=== PATIENT | male | born 1950 | race African-American/Black ===

== ENCOUNTER 2018-01-03 10:54 | Inpatient (IN) | payer OTHER ==
--- NOTE | 2018-01-03 10:57 | PDOC ---
History of Present Illness - General Chief Complaint: Redness To Affected Area Stated Complaint: LEFT SHOULDER REDNESS Time Seen by Provider: 01/03/18 10:56 - History of Present Illness Initial Comments: 01/03/18 11:07 PMHx: denies PSHx: R eye cataract sx Allergies: Denies Meds: keflex SocHx: no etoh, no tobacco, no drugs PMD: Dr. Peralta Ortho: Dr. Drummond 01/03/18 11:08 67yo male presents to the ED with Dr. Drummond for eval of L shoulder pain. Pt states the pain has been present x 1 week. 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 Pt with pain with ROM of the joint. Seen by Dr. Drummond on wednesday - dx with cellulitis of the L shoulder and started on keflex. Pt states he has been taking the keflex. Denies fevers. States the pain and the redness has not improved since starting the antibiotics. Pt denies radiation of the pain. No paresthesias. No chills. States he has been taking the abx as prescribed. Had labs on wednesday that showed an elevated wbc of 15. Pt had a repeat visit with Dr. Drummond today who noticed there was not improvement of the cellulitis and brought the patient to the ED for further eval. Dr. Drummond did an ultrasound in the office earlier today that does not show a septic joint. Concern for cellulitis that has failed outpt abx. Past History - Past Medical History Allergies/Adverse Reactions: Allergies Allergy/AdvReac Type Severity Reaction Status Date / Time No Known Allergies Allergy Verified 01/03/18 10:55 Home Medications: Ambulatory Orders Cephalexin [Keflex] 500 mg PO BID 01/03/18 COPD: No - Suicide/Smoking/Psychosocial Hx Smoking History: Never smoked Hx Alcohol Use: No Drug/Substance Use Hx: No Substance Use Type: None Review of Systems - Review of Systems Able to Perform ROS?: Yes Is the patient limited Azeri proficient: No Constitutional: No: Chills, Fever, Night Sweats HEENTM: No: Nose Congestion, Throat Pain Respiratory: No: Cough, Shortness of Breath Cardiac (ROS): No: Chest Pain, Palpitations ABD/GI: No: Diarrhea, Nausea, Vomiting, Abdominal cramping : No: Burning, Dysuria Musculoskeletal: Yes: Joint Pain, Joint Swelling, Joint Stiffness, Other (L shoulder pain, L shoulder redness, warmth) Integumentary: Yes: Erythema Neurological: No: Headache, Numbness, Paresthesia, Weakness All Other Systems: Reviewed and Negative *Physical Exam - Vital Signs 01/03/18 11:12 Selected Entries 01/03/18 10:55 Temperature 98.7 F Pulse Rate 111 H Respiratory 20 Rate Blood Pressure 158/97 Blood Pressure 117 Mean O2 Sat by Pulse 97 Oximetry (%) Weight 532.971 kg - Physical Exam General Appearance: Yes: Nourished, Appropriately Dressed. No: Apparent Distress HEENT: positive: EOMI, Normal Voice, Pharynx Normal Neck: positive: Supple. negative: Rigid Respiratory/Chest: positive: Lungs Clear, Normal Breath Sounds. negative: Chest Tender, Respiratory Distress Cardiovascular: positive: Regular Rhythm, S1, S2, Tachycardia Musculoskeletal: positive: Normal Inspection, Decreased Range of Motion, Other ( no back ttp) Extremity: positive: Normal Capillary Refill, Erythema (L shoulder erythema, warthm, ttp over anterior shoulder and along bicep tendon insertion, limited ROM secondary to pain), Inflammation, Other (radial pulses intact, sensation intact distal, brisk cap refill). negative: Calf Tenderness Integumentary: positive: Dry, Erythema (L anterior shoulder) Neurologic: positive: debt collector II-XII NML intact, Fully Oriented, Alert, Motor Strength 5/5. negative: Sensory Deficit Heart Score/ECG Review - ECG Intrepretation Comment:: 01/03/18 12:35 sinus at 89, nl axis, lvh, nl interval, no acute st/t wave findings ED Treatment Course - LABORATORY CBC & Chemistry Diagram: 01/03/18 11:24 01/03/18 11:24 Medical Decision Making - Critical Care Time Total Critical Care Time (minutes): 30 Critical Care Statement: The care of this patient involved high complexity decision making to prevent further life threatening deterioration of the patient 's condition and/or to evaluate & treat vital organ system(s) failure or risk of failure. - Medical Decision Making 01/03/18 11:15 a/p: 67yo male with no pmhx with L shoulder cellulitis -has been on abx x 3 days without improvement -had an elevated wbc on wednesday -will repeat labs, cultures, esr, crp -will most likely need admission for iv abx -had an ultrasound with Dr. Drummond without signs of septic joint -will monitor and reassess -ivf hdyration for elevated heart rate -lactate and cultures -pain control 01/03/18 11:58 increasing WBC will start iv abx microblog sent to [facility] for admissin cultures sent 01/03/18 12:15 glucose >800 new onset DM with L shoulder cellulitis will need inpt admission will continue with IVF hydration iv abx running case discussed with Sandra who accepts pt to service 01/03/18 12:35 pt now states he used to take metformin - has not taken the metformin in a long time states urinary freq, no dysuria will send vbg, a1c, acetone, repeat chem, will give ivf hdyration, insulin, will need admission *DC/Admit/Observation/Transfer Diagnosis at time of Disposition: Cellulitis of shoulder, New onset type 2 diabetes mellitus, KATARZYNA (acute kidney injury) - Discharge Dispostion Condition at time of disposition: Guarded Decision to Admit order: Yes - Referrals - Patient Instructions - Post Discharge Activity - Attestations Physician Attestion: 01/03/18 12:22 I, Dr. Sugey Bonilla, DO, attest that this document has been prepared under my direction and personally reviewed by me in its entirety. I further attest, that it accurately reflects all work, treatment, procedures and medical decision -making performed by me.
[2018-01-03] MEDS ORDERED: KETOROLAC TROMETHAMINE 30 MG/1 ML VIAL IVPUSH ONE (11:06)
[2018-01-03] MEDS ORDERED: ACETAMINOPHEN 1000 MG/100 ML VIAL (NON FORMULARY) IVPB ONE (11:06)
[2018-01-03] MEDS ORDERED: SODIUM CHLORIDE 0.9% 1000 ML INFUS.BAG IV ONE ×3 (11:06→12:23)
[2018-01-03] MEDS ORDERED: ACETAMINOPHEN INJECTION 100 ML IVPB ONE (11:38)
[2018-01-03] MEDS ORDERED: KETOROLAC TROMETHAMINE 30 MG/1 ML VIAL ONE (11:38)
[2018-01-03 11:39] LABS: HEMATOCRIT 40.7 % (35.4-49); HEMOGLOBIN 13.3 GM/dl (11.7-16.9); MCH 27.5 pg (25.7-33.7); MCHC 32.7 g/dl (32.0-35.9); MEAN CELL VOLUME 84.2 fl (80-96); MEAN PLT VOLUME 9.2 fl (7.5-11.1); PLATELET COUNT 371 K/MM3 (134-434); RBC 4.83 M/mm3 (4.00-5.60); RDW 13.7 % (11.9-15.9); WHITE BLOOD COUNT 16.6 K/mm3 (4.0-10.8)
[2018-01-03] MEDS ORDERED: VANCOMYCIN 1 GRAM (PRE-DOCKED) 1,000 MG/250 ML BAG IVPB ONE (11:55)
[2018-01-03 11:59] LABS: ALBUMIN 2.6 g/dl (3.5-5.0); ALK PHOS 99 U/L (32-92); ANION GAP 17 (8-16); BILIRUBIN,TOTAL 0.5 mg/dl (0.2-1.0); BLOOD UREA NITROGEN 32 mg/dl (7-18); CALCIUM 8.7 mg/dl (8.4-10.2); CHLORIDE 88 mmol/L (98-107); CO2 20 mmol/L (22-28); CREATININE 1.8 mg/dl (0.6-1.3); POTASSIUM 5.1 mmol/L (3.5-5.1); SGOT/AST 16 U/L (10-42); SGPT/ALT 22 U/L (10-40); SODIUM 125 mmol/L (136-145); TOT PROT 6.8 g/dl (6.4-8.3)
[2018-01-03 12:05] LABS: PLATELET ESTIMATE ADEQUATE
--- NOTE | 2018-01-03 12:10 | HP ---
CHIEF COMPLAINT: right shoulder pain PCP: Dr Krueger HISTORY OF PRESENT ILLNESS:patient is a 67-year-old male with a past medical history of diabetes. She reports with ongoing left shoulder pain that worsens upon movement for the past 4 weeks. He reports that he was prescribed metformin for his diabetes "several years ago" and self discontinued the medcation because he diabetes resolved as per patient. He was initially evaluated in the emergency department ([facility]) and diagnosed with possible impingement syndrome of the left shoulder and discharged. He reports following up with the orthopedist Dr. Drummond on 12/31/2017 prescribed Keflex ultrasound was completed as per patient which was negative for septic joint and started on Keflex. patient reports taking Keflex as prescribed however the pain worsened to the left shoulder and redness continued to the extremity. 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 with his Smoking: none Alcohol:none Drugs: none Family History: mother and father , patient reports his parents of old age and they didn't have any co-morbidities Allergies No Known Allergies Allergy (Verified 01/03/18 10:55) HOME MEDICATIONS: Home Medications Medication Instructions Recorded Cephalexin [Keflex] 500 mg PO BID 01/03/18 REVIEW OF SYSTEMS CONSTITUTIONAL: Absent: fever, chills, diaphoresis, generalized weakness, malaise, loss of appetite, weight change HEENT: Absent: rhinorrhea, nasal congestion, throat pain, throat swelling, difficulty swallowing, mouth swelling, ear pain, eye pain, visual changes CARDIOVASCULAR: Absent: chest pain, syncope, palpitations, irregular heart rate, lightheadedness , peripheral edema RESPIRATORY: Absent: cough, shortness of breath, dyspnea with exertion, orthopnea, wheezing, stridor, hemoptysis GASTROINTESTINAL: Absent: abdominal pain, abdominal distension, nausea, vomiting, diarrhea, constipation, melena, hematochezia GENITOURINARY: Absent: dysuria, frequency, urgency, hesitancy, hematuria, flank pain, genital pain MUSCULOSKELETAL: present: left shoulder pain Absent: myalgia, arthralgia, joint swelling, back pain, neck pain SKIN: Absent: rash, itching, pallor HEMATOLOGIC/IMMUNOLOGIC: Absent: easy bleeding, easy bruising, lymphadenopathy, frequent infections ENDOCRINE: present: increased thirst Absent: unexplained weight gain, unexplained weight loss, heat intolerance, cold intolerance NEUROLOGIC: Absent: headache, focal weakness or paresthesias, dizziness, unsteady gait, seizure, mental status changes, bladder or bowel incontinence PSYCHIATRIC: Absent: anxiety, depression, suicidal or homicidal ideation, hallucinations. PHYSICAL EXAMINATION Vital Signs - 24 hr 01/03/18 10:55 Temperature 98.7 F Pulse Rate 111 H Respiratory 20 Rate Blood Pressure 158/97 O2 Sat by Pulse 97 Oximetry (%) GENERAL: Awake, alert, and fully oriented, in no acute distress. HEAD: Normal with no signs of trauma. EYES: Pupils equal, round and reactive to light, extraocular movements intact, sclera anicteric, conjunctiva clear. No lid lag. EARS, NOSE, THROAT: Ears normal, nares patent, oropharynx clear without exudates . dry mucous membranes. NECK: Normal range of motion, supple without lymphadenopathy, JVD, or masses. LUNGS: Breath sounds equal, clear to auscultation bilaterally. No wheezes, and no crackles. No accessory muscle use. HEART: Regular rate and rhythm, normal S1 and S2 without murmur, rub or gallop. ABDOMEN: Soft, nontender, not distended, normoactive bowel sounds, no guarding, no rebound, no masses. No hepatomegaly or splenomegaly. MUSCULOSKELETAL: Normal range of motion at all joints. No bony deformities or tenderness. No CVA tenderness. UPPER EXTREMITIES: 2+ pulses, warm, well-perfused. No cyanosis. No clubbing. No peripheral edema. RIGHT UPPER EXTREMITY: erythema noted to anterior shoulder, pain upon ROM, less 3 second capillary refill +3 radial pulse LOWER EXTREMITIES: 2+ pulses, warm, well-perfused. No calf tenderness. No peripheral edema. NEUROLOGICAL: Cranial nerves II-XII intact. Normal speech. Normal gait. PSYCHIATRIC: Cooperative. Good eye contact. Appropriate mood and affect. SKIN: Warm, dry decreased turgor, no rashes or lesions noted, normal capillary refill. Laboratory Results - last 24 hr 01/03/18 01/03/18 11:24 11:24 WBC 16.6 H RBC 4.83 Hgb 13.3 Hct 40.7 MCV 84.2 MCH 27.5 MCHC 32.7 RDW 13.7 Plt Count 371 D MPV 9.2 Absolute Neuts (auto) 14.7 Neutrophils % Gas Line Installer Neutrophils % (Manual) 89.0 H Band Neutrophils % 2.0 Lymphocytes % Gas Line Installer Lymphocytes % (Manual) 7.0 L Monocytes % Gas Line Installer Monocytes % (Manual) 2 L Eosinophils % Gas Line Installer Basophils % Gas Line Installer Platelet Estimate Adequate Sodium 125 L Potassium 5.1 Chloride 88 L Carbon Dioxide 20 L Anion Gap 17 H BUN 32 H Creatinine 1.8 H Creat Clearance w eGFR 37.71 Calcium 8.7 Total Bilirubin 0.5 AST 16 ALT 22 Alkaline Phosphatase 99 H Total Protein 6.8 Albumin 2.6 L Laboratory Tests 01/03/18 01/03/18 11:24 11:24 ESR 105 H Random Glucose 812 H* C-Reactive Protein 33.7 H ASSESSMENT/PLAN: 1) Endo diabetes with hyperglycemia - serum glucose noted, slight anion gap patient appears severely dehydrated on exam 3 L of normal saline ordered, 10 units of subcutaneous insulin given in the emergency department, repeat fingerstick at 2 PM with insulin sliding scale , pending repeat BMP at 2 PM, pending hemoglobin a1c - appreciate endocrine input - dietary evaluation 2) ID left shoulder cellulitis - continue vancomycin renal dose, pending urine and blood cultures. - Appreciate ID input 3) nephrology KATARZYNA - creatine 1.8 unknown baseline repeat BMP at 2 PM, KATARZYNA likely secondary to hypovolemia close following F/E/N - diabetic diet - replete electrolytes prn -ns @150ml/hr ppx - scd/david - pepcid dispo: pt requires inpatient admission Problem List - Problem (1) Diabetes mellitus with hyperglycemia Code(s): E11.65 - TYPE 2 DIABETES MELLITUS WITH HYPERGLYCEMIA Visit type - Emergency Visit Emergency Visit: Yes ED Registration Date: 01/03/18 Care time: The patient presented to the Emergency Department on the above date and was hospitalized for further evaluation of their emergent condition. - New Patient This patient is new to me today: Yes Date on this admission: 01/03/18 - Critical Care Critical Care patient: No Hospitalist Screening - Colonoscopy Questionnaire Colonoscopy Questionnaire: Colonoscopy Questionnaire - Patient: 50 - 75 years old and never had a screening colonoscopy: Yes History of colon or rectal polyps, or CA: No History of IBD, Crohn's disease or UC: No History of abdominal radiation therapy as a child: No - Relative: 1 with colon or rectal CA, or polyps at age 60 or younger: No Colon or rectal CA diagnosed at age 45 or younger: No Multiple relatives with colon or rectal CA: No - Outcome: Screening Result: Positive Screen
[2018-01-03 12:13] LABS: GLUCOSE,RANDOM 812 mg/dl (74-106)
[2018-01-03] MEDS ORDERED: INSULIN REGULAR HUMAN 100 UNITS/ML *VIAL SQ ONE (12:19)
[2018-01-03] MEDS ORDERED: VANCOMYCIN 1,000 MG VIAL (RESTRICTED TO ID ONLY) ONE (12:21)
[2018-01-03] MEDS ORDERED: INSULIN REGULAR HUMAN 100 UNITS/ML *VIAL ONE (12:21)
[2018-01-03 14:15] LABS: VENOUS PH 7.37 (7.32-7.42)
[2018-01-03] MEDS ORDERED: SODIUM CHLORIDE 1,000 ML IV SCH (14:15)
[2018-01-03 15:59] LABS: ALBUMIN 2.1 g/dl (3.5-5.0); ALK PHOS 82 U/L (32-92); ANION GAP 9 (8-16); BILIRUBIN,TOTAL 0.5 mg/dl (0.2-1.0); BLOOD UREA NITROGEN 29 mg/dl (7-18); CALCIUM 7.8 mg/dl (8.4-10.2); CHLORIDE 100 mmol/L (98-107); CO2 22 mmol/L (22-28); CREATININE 1.4 mg/dl (0.6-1.3); POTASSIUM 4.7 mmol/L (3.5-5.1); SGOT/AST 17 U/L (10-42); SGPT/ALT 18 U/L (10-40); SODIUM 131 mmol/L (136-145); TOT PROT 5.6 g/dl (6.4-8.3)
[2018-01-03] MEDS: INSULIN SLIDING SCALE (NOVOLOG) 1 VIAL SQ SCH ×4 (16:01→22:59)
[2018-01-03 16:03] LABS: GLUCOSE,RANDOM 554 mg/dl (74-106)
[2018-01-03 16:10] LABS: URINE APPEARANCE Clear; URINE BILIRUBIN Negative (NEGATIVE); URINE GLUCOSE (UA) 2+ (NEGATIVE); URINE KETONE Trace (NEGATIVE); URINE LEUK ESTERASE Negative (NEGATIVE); URINE NITRITE Negative (NEGATIVE); URINE PROTEIN Negative (NEGATIVE); URINE UROBILINOGEN 0.2 (0.2-1.0)
[2018-01-03 16:11] LABS: URINE COLOR YELLOW
[2018-01-03 17:30] VITALS: BMI 27.4
[2018-01-03 18:18] LABS: URINE WBC 0-2 (0-2)
[2018-01-03] MEDS ORDERED: INSULIN (NOVOLOG) ASPART 100 UNITS/ML 10ML VIAL ONE (18:48)
--- NOTE | 2018-01-03 19:37 | PN ---
Progress Note (short form) - Note Progress Note: This gentleman is a 67-year-old male who initially presented to my office 3 days ago for evaluation of shoulder pain. There is no particular triggering incident. His exam at the time showed erythema and warmth over the anterior aspect of the shoulder. Laboratory studies into the time demonstrated ESR of 80 and white count of 15. The presumptive diagnosis was cellulitis and the patient was treated with by mouth Keflex over the weekend. He was brought in for follow-up today and upon presentation demonstrated no clinical improvement. In office ultrasound was performed prior to admission over the acromioclavicular joint demonstrating no effusion and therefore suggesting this was superficial and not involving a septic joint. He was brought to the ER given his failure to respond to by mouth and was found to have further elevated white count, acute and severe hyperglycemia, dehydration and renal failure. We will continue to follow the patient. If he is not clinically improving on IV antibiotics and with treatment of his other medical ailments, we can consider aspiration of the acromioclavicular joint.This gentleman is a 67-year-old male who initially presented to my office 3 days ago for evaluation of shoulder pain. There is no particular triggering incident. His exam at the time showed erythema and warmth over the anterior aspect of the shoulder. Laboratory studies into the time demonstrated ESR of 80 and white count of 15. The presumptive diagnosis was cellulitis and the patient was treated with by mouth Keflex over the weekend. He was brought in for follow-up today and upon presentation demonstrated no clinical improvement. In office ultrasound was performed prior to admission over the acromioclavicular joint demonstrating no effusion and therefore suggesting this was superficial and not involving a septic joint. He was brought to the ER given his failure to respond to by mouth and was found to have further elevated white count, acute and severe hyperglycemia, dehydration and renal failure. We will continue to follow the patient. If he is not clinically improving on IV antibiotics and with treatment of his other medical ailments, we can consider MRI or aspiration of the acromioclavicular joint.
[2018-01-03] MEDS ORDERED: SODIUM CHLORIDE 0.45% 1,000 ML IV SCH (21:15)
[2018-01-03] MEDS: ACETAMINOPHEN 325 MG TABLET (FP) PO PRN (22:40)
[2018-01-03] MEDS: INSULIN (LEVEMIR) 100 UNITS/ML UNITS SQ SCH (22:45)
[2018-01-03] MEDS ORDERED: INSULIN (NOVOLOG) ASPART 100 UNITS/ML 10ML VIAL SQ ONE (23:00)
[2018-01-04] MEDS ORDERED: INSULIN (NOVOLOG) ASPART 100 UNITS/ML 10ML VIAL SQ ONE (00:43)
[2018-01-04] MEDS: INSULIN SLIDING SCALE (NOVOLOG) 1 VIAL SQ SCH ×3 (06:38→17:11)
[2018-01-04] MEDS ORDERED: INSULIN SLIDING SCALE (NOVOLOG) 1 VIAL SQ SCH (07:00)
--- NOTE | 2018-01-04 07:40 | PN ---
Physical Exam: SUBJECTIVE: Patient seen and examined, reports ongoing left shoulder pain denies any tactile fever. OBJECTIVE:She is a 59-year-old male, with a past medical history of diabetes patient was admitted from the emergency department for cellulitis failed outpatient therapy and hyperglycemia Vital Signs Period Temp Pulse Resp BP Sys/Green Pulse Ox Last 24 Hr 98.5 F-99.0 F 71-111 16-20 132-158/61-97 97-100 GENERAL: The patient is awake, alert, and fully oriented, in no acute distress. HEAD: Normal with no signs of trauma. EYES: PERRL, extraocular movements intact, sclera anicteric, conjunctiva clear. No ptosis. ENT: Ears normal, nares patent, oropharynx clear without exudates, moist mucous membranes. NECK: Trachea midline, full range of motion, supple. LUNGS: Breath sounds equal, clear to auscultation bilaterally, no wheezes, no crackles, no accessory muscle use. HEART: Regular rate and rhythm, S1, S2 without murmur, rub or gallop. ABDOMEN: Soft, nontender, nondistended, normoactive bowel sounds, no guarding, no rebound, no hepatosplenomegaly, no masses. EXTREMITIES: 2+ pulses, warm, well-perfused, no edema. lEFT UPPER EXTREMITY: 5 CM OF ERYTHEMA NOTED TO THE LEFT ANTERIOR SHOULDER WITH POINT TENDERNESS NO FLUCTUANCE NOTED. uPON ROM NEUROLOGICAL: Cranial nerves II through XII grossly intact. Normal speech, gait not observed. PSYCH: Normal mood, normal affect. SKIN: Warm, dry, normal turgor, no rashes or lesions noted Laboratory Results - last 24 hr CBC WBC 14.9 K/mm3 (4.0-10.8) H 01/04/18 07:25 RBC 4.26 M/mm3 (4.00-5.60) 01/04/18 07:25 Hgb 11.6 GM/dl (11.7-16.9) L D 01/04/18 07:25 Hct 34.6 % (35.4-49) L 01/04/18 07:25 MCV 81.3 fl (80-96) 01/04/18 07:25 MCH 27.4 pg (25.7-33.7) 01/04/18 07:25 MCHC 33.7 g/dl (32.0-35.9) 01/04/18 07:25 RDW 13.4 % (11.9-15.9) 01/04/18 07:25 Plt Count 353 K/MM3 (134-434) 01/04/18 07:25 MPV 8.8 fl (7.5-11.1) 01/04/18 07:25 Absolute Neuts (auto) 12.6 # 01/04/18 07:25 Neutrophils % 84.7 % (42.8-82.8) H 01/04/18 07:25 Neutrophils % (Manual) 89.0 % (42.8-82.8) H 01/03/18 11:24 Band Neutrophils % 2.0 % (0-10) 01/03/18 11:24 Lymphocytes % 9.1 % (8-40) 01/04/18 07:25 Lymphocytes % (Manual) 7.0 % (8-40) L 01/03/18 11:24 Monocytes % 5.1 % (3.8-10.2) 01/04/18 07:25 Monocytes % (Manual) 2 % (3.8-10.2) L 01/03/18 11:24 Eosinophils % 0.9 % (0-4.5) 01/04/18 07:25 Basophils % 0.2 % (0-2.0) 01/04/18 07:25 Platelet Estimate Adequate 01/03/18 11:24 ESR 105 mm/hr (0-20) H 01/03/18 11:24 CMP Sodium 135 mmol/L (136-145) L 01/04/18 07:25 Potassium 3.8 mmol/L (3.5-5.1) 01/04/18 07:25 Chloride 107 mmol/L (98-107) 01/04/18 07:25 Carbon Dioxide 23 mmol/L (22-28) 01/04/18 07:25 Anion Gap 5 (8-16) L 01/04/18 07:25 BUN 20 mg/dl (7-18) H D 01/04/18 07:25 Creatinine 1.0 mg/dl (0.6-1.3) D 01/04/18 07:25 Creat Clearance w eGFR > 60 (>60) 01/04/18 07:25 POC Glucometer 327 UNITS (80-120) 01/04/18 11:54 Random Glucose 145 mg/dl (74-106) H D 01/04/18 07:25 Hemoglobin A1c % 13.5 % (4.8-6.0) H 01/03/18 12:45 Lactic Acid 1.5 mmol/L (0.0-2.0) 01/03/18 11:24 Calcium 7.7 mg/dl (8.4-10.2) L 01/04/18 07:25 Phosphorus 3.2 mg/dl (2.5-4.6) 01/04/18 07:25 Magnesium 1.9 mg/dL (1.8-2.4) 01/04/18 07:25 Total Bilirubin 0.5 mg/dl (0.2-1.0) 01/04/18 07:25 AST 19 U/L (10-42) 01/04/18 07:25 ALT 16 U/L (10-40) 01/04/18 07:25 Alkaline Phosphatase 76 U/L (32-92) 01/04/18 07:25 C-Reactive Protein 33.7 MG/DL (0.00-0.3) H 01/03/18 11:24 Total Protein 5.5 g/dl (6.4-8.3) L 01/04/18 07:25 Albumin 2.0 g/dl (3.5-5.0) L 01/04/18 07:25 TSH 1.36 uIU/ml (0.358-3.74) 01/03/18 12:40 Free T4 0.96 ng/dl (0.76-1.16) 01/03/18 12:40 Free T3 3.0 pg/ml (2.0-4.4) 01/03/18 12:40 Active Medications Generic Name Dose Route Start Last Admin Trade Name Freq PRN Reason Stop Dose Admin Acetaminophen 650 mg 01/03/18 14:09 01/03/18 22:40 Tylenol - PO 650 mg Q4H PRN Administration FEVER Famotidine 20 mg 01/04/18 10:00 Pepcid - PO DAILY JATINDER Sodium Chloride 1,000 mls @ 83 mls/hr 01/03/18 21:15 01/03/18 22:59 1/2 Normal Saline IV 83 mls/hr ASDIR JATINDER Administration Insulin Aspart 1 vial 01/03/18 22:00 01/04/18 06:38 Novolog Vial Sliding Scale - SQ Not Given ACHS [facility] Protocol Insulin Detemir 15 units 01/03/18 22:00 01/03/18 22:45 Levemir Vial SQ 15 units HS JATINDER Administration Microbiology 01/03/18 11:35 Blood - Peripheral Venous Blood Culture - Preliminary NO GROWTH OBTAINED AFTER 24 HOURS, INCUBATION TO CONTINUE FOR 4 DAYS. 01/03/18 11:24 Blood - Peripheral Venous Blood Culture - Preliminary NO GROWTH OBTAINED AFTER 24 HOURS, INCUBATION TO CONTINUE FOR 4 DAYS. ASSESSMENT/PLAN: 1) Endo diabetes with hyperglycemia - Hemoglobin A1c noted to be 13, continue fingersticks before meals and at bedtime with regular insulin coverage and Levemir 15 units subcutaneous daily at bedtime - No anion gap is noted will decrease IV fluids 83 mL an hour, strict monitoring - Hand Decorator consulted and following - Appreciate dietary evaluation 2) ID left shoulder cellulitis - continue vancomycin And Zosyn pending urine and blood cultures - Leukocytosis trending downward patient is afebrile infectious disease physician consulted and following. 3) nephrology KATARZYNA - Creatinine 1.0. resolved with IV fluids KATARZYNA secondary to hypovolemia F/E/N - diabetic diet - replete electrolytes prn -ns @ 83ml/hr ppx - scd/david - pepcid dispo: pt requires inpatient admission Problem List - Problems (1) Diabetes mellitus with hyperglycemia Code(s): E11.65 - TYPE 2 DIABETES MELLITUS WITH HYPERGLYCEMIA Visit type - Emergency Visit Emergency Visit: Yes ED Registration Date: 01/03/18 Care time: The patient presented to the Emergency Department on the above date and was hospitalized for further evaluation of their emergent condition. - New Patient This patient is new to me today: No - Critical Care Critical Care patient: No - Discharge Referral Referred to [facility] No
--- NOTE | 2018-01-04 09:04 | CONSULT ---
Consult Consult Specialty:: Endocrinology Referred by:: Sandra Barr Reason for Consultation:: Hyperglycemia - History of Present Illness Chief Complaint: left shoulder pain History of Present Illness: This is a 67yo male wihg h/o of DM for ?10years, on Metformin for about a month only after diagnosis presented to the ED for evaluation of L shoulder pain. Pt states the pain has been present for about 1 week. 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 Pt with pain with ROM of the joint. Seen by Dr. Drummond on wednesday - dx with cellulitis of the L shoulder and started on keflex. In the ED pt was found to be hyperglycemic with blood sugar of 812, CO2 20, AGap 17, Cr 1.8 and Acetone small +. Pt was treated with Insulin and IV hydration with improvement in hyperglycemia and renal function. On further questioning pt gives h/o polyuria, polydipsia for about 2 weeks which has now resolved. Has also lost around 10 lbs recently. Also has blurred vision and numbness of left foor for about 2 weeks. Doesn't know if anyone in the family is diabetic. - History Source History Provided By: Patient, Medical Record - Past Medical History Endocrine: Yes: Diabetes Mellitus - Alcohol/Substance Use Hx Alcohol Use: No - Smoking History Smoking history: Never smoked Have you smoked in the past 12 months: No Home Medications - Allergies Allergies/Adverse Reactions: Allergies Allergy/AdvReac Type Severity Reaction Status Date / Time No Known Allergies Allergy Verified 01/03/18 10:55 - Home Medications Home Medications: Ambulatory Orders Cephalexin [Keflex] 500 mg PO BID 01/03/18 Family Disease History - Family Disease History Other Family History: Doesn't know if anyone in family is diabetic Review of Systems - Review of Systems Constitutional: reports: No Symptoms Eyes: reports: No Symptoms HENT: reports: No Symptoms Neck: reports: No Symptoms Cardiovascular: reports: No Symptoms Respiratory: reports: No Symptoms Gastrointestinal: reports: No Symptoms Genitourinary: reports: No Symptoms Breasts: reports: No Symptoms Reported Musculoskeletal: reports: Joint Pain (left shoulder), Other (left leg numbnes) Integumentary: reports: No Symptoms Neurological: reports: No Symptoms Endocrine: reports: No Symptoms Hematology/Lymphatic: reports: No Symptoms Psychiatric: reports: No Symptoms Physical Exam Vital Signs: Vital Signs Temperature 98.5 F 01/04/18 06:00 Pulse Rate 71 01/04/18 06:00 Respiratory Rate 18 01/04/18 06:00 Blood Pressure 132/61 01/04/18 06:00 O2 Sat by Pulse Oximetry (%) 97 01/04/18 08:02 Constitutional: Yes: No Distress, Calm Eyes: Yes: Conjunctiva Clear, EOM Intact HENT: Yes: Atraumatic, Normocephalic Neck: Yes: Supple, Trachea Midline Cardiovascular: Yes: Regular Rate and Rhythm Respiratory: Yes: Regular, CTA Bilaterally Gastrointestinal: Yes: Normal Bowel Sounds, Soft Breast(s): Yes: WNL Musculoskeletal: Yes: Joint Swelling (left shoulder) Extremities: Yes: WNL Edema: No Neurological: Yes: Alert, Oriented Imaging - Results Chest X-ray: Report Reviewed Assessment/Plan AP: Left shoulder pain/swelling: ?Septic arthritis IV abx Further management as per ID, Ortho T2DM: ?new onset. Continue with Levemir 15 units at Novolog SS coverage Will adjust Insulin dose tomorrow depending upon how pt responds. nutrition consult Will f/u
[2018-01-04 09:06] LABS: BASO % 0.2 % (0-2.0); EOS % 0.9 % (0-4.5); HEMATOCRIT 34.6 % (35.4-49); HEMOGLOBIN 11.6 GM/dl (11.7-16.9); LYMPH % 9.1 % (8-40); MCH 27.4 pg (25.7-33.7); MCHC 33.7 g/dl (32.0-35.9); MEAN CELL VOLUME 81.3 fl (80-96); MEAN PLT VOLUME 8.8 fl (7.5-11.1); MONO % 5.1 % (3.8-10.2); NEUT % 84.7 % (42.8-82.8); PLATELET COUNT 353 K/MM3 (134-434); RBC 4.26 M/mm3 (4.00-5.60); RDW 13.4 % (11.9-15.9); WHITE BLOOD COUNT 14.9 K/mm3 (4.0-10.8)
[2018-01-04] MEDS: FAMOTIDINE 20 MG TABLET PO SCH (09:33)
[2018-01-04 09:40] LABS: ALK PHOS 76 U/L (32-92); ANION GAP 5 (8-16); BILIRUBIN,TOTAL 0.5 mg/dl (0.2-1.0); BLOOD UREA NITROGEN 20 mg/dl (7-18); CALCIUM 7.7 mg/dl (8.4-10.2); CHLORIDE 107 mmol/L (98-107); CO2 23 mmol/L (22-28); GLUCOSE,RANDOM 145 mg/dl (74-106); MAGNESIUM 1.9 mg/dL (1.8-2.4); PHOSPHOROUS 3.2 mg/dl (2.5-4.6); POTASSIUM 3.8 mmol/L (3.5-5.1); SGOT/AST 19 U/L (10-42); SGPT/ALT 16 U/L (10-40); SODIUM 135 mmol/L (136-145); TOT PROT 5.5 g/dl (6.4-8.3)
--- NOTE | 2018-01-04 10:11 | PN ---
Progress Note (short form) - Note Progress Note: ID Consult dictated L shoulder cellulitis ? septic arthritis Uncontrolled diabetes mellitus Azotemia- improved Await c/s Ortho follow up Consider MRI L shoulder Empiric vancomycin / zosyn
[2018-01-04] MEDS: VANCOMYCIN 1 GRAM (PRE-DOCKED) 1,000 MG/250 ML BAG IVPB SCH ×2 (11:02→21:52)
[2018-01-04] MEDS: PIPERACILLIN/TAZOB 3.375 GM 3.375 GM/50 ML BAG IVPB SCH ×2 (11:02→18:25)
--- NOTE | 2018-01-04 11:19 | CONS ---
INFECTIOUS DISEASE CONSULTATION DATE OF CONSULTATION: DATE OF DICTATION: 01/04/2018 The patient is a 67-year-old, diabetic male who is evaluated for cellulitis of the left shoulder. He reports he was well until approximately 1 week ago. He began to develop pain, swelling, and erythema of the left shoulder. He denies any traumatic injury. No insect or animal bites or scratches. He presented to an orthopedist on December 31, 2017. He was diagnosed with cellulitis. On evaluation, he was felt not to have septic arthritis of the left shoulder. His clinical course is complicated by uncontrolled diabetes mellitus and azotemia. As noted, he denies any traumatic injury or strain to his left shoulder. No associated fever or chills. He denies prior history of joint infection. No other joint involvement reported. PAST MEDICAL HISTORY: Positive for diabetes mellitus. PAST SURGICAL HISTORY: Status post cataract surgery. ALLERGIES: No known allergies. SOCIAL HISTORY: Negative for tobacco or alcohol use. LABORATORY DATA: White count on admission 16,000, presently 14.9; hematocrit 34.6; platelet count 353. BUN 20, creatinine 1.0. Blood cultures are pending. Urinalysis negative leukocyte esterase. PHYSICAL EXAMINATION: General: He is awake and alert. He is not acutely toxic appearing. Vital Signs: Temperature 98.7; blood pressure 132/61; pulse 71, regular; respirations 18 per minute. HEENT: Sclerae are anicteric. Heart: Sounds S1, S2. Lungs: Clear. Left Shoulder: There is swelling of the left shoulder with decreased range of motion. There is an ill-defined area of erythema present on the anterior aspect of the left shoulder, warm to touch. No crepitus or fluctuance. Abdomen: Soft and nontender. Extremities: Negative for edema. IMPRESSION: 1. Left shoulder cellulitis. 2. Possible left shoulder septic arthritis. 3. Uncontrolled diabetes mellitus. 4. Azotemia, resolved. Await culture results. Orthopedic evaluation. Would consider additional imaging of the left shoulder, specifically an MRI. Empiric antibiotic coverage pending cultures with vancomycin and Zosyn. Analgesics. Will follow. Thank you for the kind referral. CORNELL GARCIA M.D. ROMARIO/[id number]
--- NOTE | 2018-01-04 14:47 | EKG ---
Test Reason : Blood Pressure : / mmHG Vent. Rate : 089 BPM Atrial Rate : 089 BPM P-R Int : 148 ms QRS Dur : 100 ms QT Int : 370 ms P-R-T Axes : 064 022 070 degrees QTc Int : 450 ms NORMAL SINUS RHYTHM BIATRIAL ENLARGEMENT LEFT VENTRICULAR HYPERTROPHY ABNORMAL ECG NO PREVIOUS ECGS AVAILABLE Confirmed by MD Eusebia, David ([id number]) on 01/04/2018 2:47:03 PM Referred By: REBEKA Confirmed By:David Laws MD
[2018-01-04] MEDS ORDERED: SODIUM CHLORIDE 0.45%/POT 20 MEQ/1,000 ML INFUS.BAG IV SCH (15:15)
[2018-01-04] MEDS: INSULIN (LEVEMIR) 100 UNITS/ML UNITS SQ SCH (21:20)
[2018-01-04] MEDS ORDERED: INSULIN (NOVOLOG) ASPART 100 UNITS/ML 10ML VIAL ONE (21:20)
[2018-01-04] MEDS: ACETAMINOPHEN 325 MG TABLET (FP) PO PRN (21:27)
[2018-01-04] MEDS ORDERED: ZOLPIDEM TARTRATE 5 MG TABLET PO PRN (22:00)
[2018-01-04] MEDS ORDERED: Insulin (LOG) Aspart 100 UNITS/ML VIAL SQ SCH (22:00)
[2018-01-05] MEDS: PIPERACILLIN/TAZOB 3.375 GM 3.375 GM/50 ML BAG IVPB SCH ×3 (01:30→18:15)
[2018-01-05] MEDS: INSULIN SLIDING SCALE (NOVOLOG) 1 VIAL SQ SCH ×4 (06:37→21:40)
--- NOTE | 2018-01-05 07:44 | PN ---
Physical Exam: SUBJECTIVE: Patient seen and examined, patient reports pain to the left extremity has worsened within the past 24 hours, patient denies any chest pain OBJECTIVE: Patient is a 59-year-old male, with a past medical history of diabetes patient was admitted from the emergency department for cellulitis failed outpatient therapy and hyperglycemia Vital Signs Period Temp Pulse Resp BP Sys/Green Pulse Ox Last 24 Hr 98.5 F-99.7 F 72-84 18-18 171-175/72-88 97-99 GENERAL: The patient is awake, alert, and fully oriented, in no acute distress. HEAD: Normal with no signs of trauma. EYES: PERRL, extraocular movements intact, sclera anicteric, conjunctiva clear. No ptosis. ENT: Ears normal, nares patent, oropharynx clear without exudates, moist mucous membranes. NECK: Trachea midline, full range of motion, supple. LUNGS: Breath sounds equal, clear to auscultation bilaterally, no wheezes, no crackles, no accessory muscle use. HEART: Regular rate and rhythm, S1, S2 without murmur, rub or gallop. ABDOMEN: Soft, nontender, nondistended, normoactive bowel sounds, no guarding, no rebound, no hepatosplenomegaly, no masses. EXTREMITIES: 2+ pulses, warm, well-perfused, no edema. LEFT UPPER EXTREMITY: 4 CM OF ERYTHEMA NOTED TO THE LEFT ANTERIOR SHOULDER WITH POINT TENDERNESS NO FLUCTUANCE NOTED. PAIN UPON ROM NEUROLOGICAL: Cranial nerves II through XII grossly intact. Normal speech, gait not observed. PSYCH: Normal mood, normal affect. SKIN: Warm, dry, normal turgor, no rashes or lesions noted Laboratory Results - last 24 hr 01/03/18 01/03/18 01/03/18 12:40 18:33 22:20 WBC RBC Hgb Hct MCV MCH MCHC RDW Plt Count MPV Absolute Neuts (auto) Neutrophils % Lymphocytes % Monocytes % Eosinophils % Basophils % Sodium Potassium Chloride Carbon Dioxide Anion Gap BUN Creatinine Creat Clearance w eGFR POC Glucometer 430 420 Random Glucose Calcium Phosphorus Magnesium Total Bilirubin AST ALT Alkaline Phosphatase Total Protein Albumin Free T3 3.0 01/04/18 01/04/18 01/04/18 07:25 07:25 11:54 WBC 14.9 H RBC 4.26 Hgb 11.6 L D Hct 34.6 L MCV 81.3 MCH 27.4 MCHC 33.7 RDW 13.4 Plt Count 353 MPV 8.8 Absolute Neuts (auto) 12.6 Neutrophils % 84.7 H Lymphocytes % 9.1 Monocytes % 5.1 Eosinophils % 0.9 Basophils % 0.2 Sodium 135 L Potassium 3.8 Chloride 107 Carbon Dioxide 23 Anion Gap 5 L BUN 20 H D Creatinine 1.0 D Creat Clearance w eGFR > 60 POC Glucometer 327 Random Glucose 145 H D Calcium 7.7 L Phosphorus 3.2 Magnesium 1.9 Total Bilirubin 0.5 AST 19 ALT 16 Alkaline Phosphatase 76 Total Protein 5.5 L Albumin 2.0 L Free T3 01/04/18 01/04/18 01/05/18 16:18 21:11 06:09 WBC RBC Hgb Hct MCV MCH MCHC RDW Plt Count MPV Absolute Neuts (auto) Neutrophils % Lymphocytes % Monocytes % Eosinophils % Basophils % Sodium Potassium Chloride Carbon Dioxide Anion Gap BUN Creatinine Creat Clearance w eGFR POC Glucometer 305 390 246 Random Glucose Calcium Phosphorus Magnesium Total Bilirubin AST ALT Alkaline Phosphatase Total Protein Albumin Free T3 Active Medications Generic Name Dose Route Start Last Admin Trade Name Freq PRN Reason Stop Dose Admin Acetaminophen 650 mg 01/03/18 14:09 01/04/18 21:27 Tylenol - PO 650 mg Q4H PRN Administration FEVER Famotidine 20 mg 01/04/18 10:00 01/04/18 09:33 Pepcid - PO 20 mg DAILY JATINDER Administration Vancomycin HCl 1,000 mg in 250 mls @ 166.667 mls/hr 01/04/18 10:30 01/04/18 21:52 Vancomycin (Pre-Docked) IVPB 166.667 mls/hr BID@1030,2230 JATINDER Administration Protocol Piperacillin Sod/Tazobactam Sod 3.375 gm in 50 mls @ 100 mls/hr 01/04/18 10: 30 01/05/18 01:30 Zosyn 3.375gm Ivpb (Pre-Docked) IVPB 100 mls/hr Q8H-IV JATINDER Administration Protocol Potassium Chloride/Sodium Chloride 20 meq in 1,000 mls @ 75 mls/hr 01/04/18 15 :15 01/04/18 17:11 1/2ns+20meq Kcl IV 75 mls/hr ASDIR JATINDER Administration Insulin Aspart 1 vial 01/04/18 11:00 01/05/18 06:37 Novolog Vial Sliding Scale - SQ 4 units TIDAC JATINDER Administration Protocol Insulin Aspart 0 units 01/04/18 22:00 01/04/18 21:16 Novolog SQ 8 units HS [facility] Administration Protocol Insulin Detemir 15 units 01/03/18 22:00 01/04/18 21:20 Levemir Vial SQ 15 units HS JATINDER Administration Lisinopril 5 mg 01/05/18 10:00 Prinivil PO DAILY JATINDER Zolpidem Tartrate 5 mg 01/04/18 22:00 Ambien - PO HS PRN INSOMNIA Microbiology 01/03/18 15:59 Urine - Urine Clean Catch Urine Culture - Final NO GROWTH OBTAINED 01/03/18 11:35 Blood - Peripheral Venous Blood Culture - Preliminary NO GROWTH OBTAINED AFTER 48 HOURS, INCUBATION TO CONTINUE FOR 3 DAYS. 01/03/18 11:24 Blood - Peripheral Venous Blood Culture - Preliminary NO GROWTH OBTAINED AFTER 48 HOURS, INCUBATION TO CONTINUE FOR [address] of upper extremity: Abscess cannot be excluded possible mild erosion of the cortex of the undersurface of the acrominion, distal clavicle multiple air bubbles were obvious cortical disruption questionable osteomyelitis ASSESSMENT/PLAN: 1) Endo diabetes with hyperglycemia - Continue fingersticks before meals and at bedtime with regular insulin coverage and fingersticks elevated levermir 20 units QHS. - End Matcher consulted and following - Appreciate dietary evaluation 2) ID left shoulder cellulitis - continue vancomycin And Zosyn, blood cultures negative to date - MRI of left shoulder ordered questionable cellulitis on CT scan - Leukocytosis trending downward patient is afebrile infectious disease physician consulted and following. 3) nephrology KATARZYNA - Creatinine 1.0. resolved with IV fluids KATARZYNA secondary to hypovolemia F/E/N - diabetic diet - replete electrolytes prn ppx - scd/david - pepcid dispo: pt requires inpatient admission Problem List - Problems (1) Diabetes mellitus with hyperglycemia Code(s): E11.65 - TYPE 2 DIABETES MELLITUS WITH HYPERGLYCEMIA Visit type - Emergency Visit Emergency Visit: Yes ED Registration Date: 01/03/18 Care time: The patient presented to the Emergency Department on the above date and was hospitalized for further evaluation of their emergent condition. - New Patient This patient is new to me today: No - Critical Care Critical Care patient: No - Discharge Referral Referred to [facility] Med P.C.: No
--- NOTE | 2018-01-05 08:57 | PN ---
Progress Note (short form) - Note Progress Note: Left shoulder pain Pain left foot improved Vital Signs Period Temp Pulse Resp BP Sys/Green Pulse Ox Last 24 Hr 98.5 F-99.7 F 72-84 18-18 171-175/72-88 97-99 PE: AOx3 Neck: Supple, No JVD HEENT: EOMI Lungs: CTA CVS: S1S2 Abd: Bening EXt: No edema. +Swelling Left shoulder Neuro: No focal deficit CMP Sodium 135 mmol/L (136-145) L 01/04/18 07:25 Potassium 3.8 mmol/L (3.5-5.1) 01/04/18 07:25 Chloride 107 mmol/L (98-107) 01/04/18 07:25 Carbon Dioxide 23 mmol/L (22-28) 01/04/18 07:25 Anion Gap 5 (8-16) L 01/04/18 07:25 BUN 20 mg/dl (7-18) H D 01/04/18 07:25 Creatinine 1.0 mg/dl (0.6-1.3) D 01/04/18 07:25 Creat Clearance w eGFR > 60 (>60) 01/04/18 07:25 POC Glucometer 246 UNITS (80-120) 01/05/18 06:09 Random Glucose 145 mg/dl (74-106) H D 01/04/18 07:25 Hemoglobin A1c % 13.5 % (4.8-6.0) H 01/03/18 12:45 Lactic Acid 1.5 mmol/L (0.0-2.0) 01/03/18 11:24 Calcium 7.7 mg/dl (8.4-10.2) L 01/04/18 07:25 Phosphorus 3.2 mg/dl (2.5-4.6) 01/04/18 07:25 Magnesium 1.9 mg/dL (1.8-2.4) 01/04/18 07:25 Total Bilirubin 0.5 mg/dl (0.2-1.0) 01/04/18 07:25 AST 19 U/L (10-42) 01/04/18 07:25 ALT 16 U/L (10-40) 01/04/18 07:25 Alkaline Phosphatase 76 U/L (32-92) 01/04/18 07:25 C-Reactive Protein 33.7 MG/DL (0.00-0.3) H 01/03/18 11:24 Total Protein 5.5 g/dl (6.4-8.3) L 01/04/18 07:25 Albumin 2.0 g/dl (3.5-5.0) L 01/04/18 07:25 TSH 1.36 uIU/ml (0.358-3.74) 01/03/18 12:40 Free T4 0.96 ng/dl (0.76-1.16) 01/03/18 12:40 Free T3 3.0 pg/ml (2.0-4.4) 01/03/18 12:40 Current Medications Generic Name Dose Route Start Last Admin Trade Name Freq PRN Reason Stop Dose Admin Acetaminophen 650 mg 01/03/18 14:09 01/04/18 21:27 Tylenol - PO 650 mg Q4H PRN Administration FEVER Famotidine 20 mg 01/04/18 10:00 01/04/18 09:33 Pepcid - PO 20 mg DAILY JATINDER Administration Vancomycin HCl 1,000 mg in 250 mls @ 166.667 mls/hr 01/04/18 10:30 01/04/18 21:52 Vancomycin (Pre-Docked) IVPB 166.667 mls/hr BID@1030,2230 JATINDER Administration Protocol Piperacillin Sod/Tazobactam Sod 3.375 gm in 50 mls @ 100 mls/hr 01/04/18 10: 30 01/05/18 01:30 Zosyn 3.375gm Ivpb (Pre-Docked) IVPB 100 mls/hr Q8H-IV JATINDER Administration Protocol Potassium Chloride/Sodium Chloride 20 meq in 1,000 mls @ 75 mls/hr 01/04/18 15 :15 01/04/18 17:11 1/2ns+20meq Kcl IV 75 mls/hr ASDIR JATINDER Administration Insulin Aspart 1 vial 01/04/18 11:00 01/05/18 06:37 Novolog Vial Sliding Scale - SQ 4 units TIDAC JATINDER Administration Protocol Insulin Aspart 1 vial 01/05/18 08:11 Novolog Vial Sliding Scale - SQ HS JATINDER Protocol Insulin Detemir 15 units 01/03/18 22:00 06/19/18 21:20 Levemir Vial SQ 15 units HS JATINDER Administration Lisinopril 5 mg 01/05/18 10:00 Prinivil PO DAILY JATINDER Zolpidem Tartrate 5 mg 01/04/18 22:00 Ambien - PO HS PRN INSOMNIA AP: Left shoulder pain/swelling: ?Septic arthritis IV abx Further management as per ID, Ortho T2DM: ?new onset. INcrease Levemir 20 units at HS Increase Novolog SS coverage Will adjust Insulin dose tomorrow depending upon how pt responds. nutrition consult Teach pt to self monitor blood sugar and self inject Insulin Will f/u
[2018-01-05 09:00] LABS: BASO % 0.8 % (0-2.0); EOS % 1.3 % (0-4.5); HEMATOCRIT 34.3 % (35.4-49); HEMOGLOBIN 11.7 GM/dl (11.7-16.9); LYMPH % 11.7 % (8-40); MCH 27.6 pg (25.7-33.7); MCHC 34.2 g/dl (32.0-35.9); MEAN CELL VOLUME 80.9 fl (80-96); MEAN PLT VOLUME 8.7 fl (7.5-11.1); MONO % 5.5 % (3.8-10.2); NEUT % 80.7 % (42.8-82.8); PLATELET COUNT 378 K/MM3 (134-434); RBC 4.24 M/mm3 (4.00-5.60); RDW 13.3 % (11.9-15.9)
[2018-01-05 09:16] LABS: ALBUMIN 1.9 g/dl (3.5-5.0); ALK PHOS 79 U/L (32-92); ANION GAP 7 (8-16); BILIRUBIN,TOTAL 0.3 mg/dl (0.2-1.0); BLOOD UREA NITROGEN 13 mg/dl (7-18); CALCIUM 7.7 mg/dl (8.4-10.2); CHLORIDE 103 mmol/L (98-107); CO2 21 mmol/L (22-28); CREATININE 0.9 mg/dl (0.6-1.3); GLUCOSE,RANDOM 270 mg/dl (74-106); MAGNESIUM 1.8 mg/dL (1.8-2.4); PHOSPHOROUS 3.3 mg/dl (2.5-4.6); POTASSIUM 4.1 mmol/L (3.5-5.1); SGOT/AST 23 U/L (10-42); SGPT/ALT 21 U/L (10-40); SODIUM 131 mmol/L (136-145); TOT PROT 5.6 g/dl (6.4-8.3)
--- NOTE | 2018-01-05 10:00 | PN ---
Progress Note, Physician History of Present Illness: Awake, alert Reports less shoulder pain, increased ROM Low grade temp noted WBC improved BC no growth - Current Medication List Current Medications: Active Medications Acetaminophen (Tylenol -) 650 mg PO Q4H PRN PRN Reason: FEVER Last Admin: 01/04/18 21:27 Dose: 650 mg Famotidine (Pepcid -) 20 mg PO DAILY JATINDER Last Admin: 01/04/18 09:33 Dose: 20 mg Vancomycin HCl (Vancomycin (Pre-Docked)) 1,000 mg in 250 mls @ 166.667 mls/hr IVPB BID@1030,2230 JATINDER; Protocol Last Admin: 01/04/18 21:52 Dose: 166.667 mls/hr Piperacillin Sod/Tazobactam Sod (Zosyn 3.375gm Ivpb (Pre-Docked)) 3.375 gm in 50 mls @ 100 mls/hr IVPB Q8H-IV JATINDER; Protocol Last Admin: 01/05/18 01:30 Dose: 100 mls/hr Potassium Chloride/Sodium Chloride (1/2ns+20meq Kcl) 20 meq in 1,000 mls @ 75 mls/hr IV ASDIR [facility] Last Admin: 01/04/18 17:11 Dose: 75 mls/hr Insulin Aspart (Novolog Vial Sliding Scale -) 1 vial SQ HS [facility]; Protocol Insulin Aspart (Novolog Vial Sliding Scale -) 1 vial SQ TIDAC [facility]; Protocol Insulin Detemir (Levemir Vial) 20 units SQ HS [facility] Lisinopril (Prinivil) 5 mg PO DAILY [facility] Zolpidem Tartrate (Ambien -) 5 mg PO HS PRN PRN Reason: INSOMNIA - Objective Vital Signs: Vital Signs Temperature 98.5 F 01/05/18 06:00 Pulse Rate 72 01/05/18 06:00 Respiratory Rate 18 01/05/18 06:00 Blood Pressure 175/76 01/05/18 06:00 O2 Sat by Pulse Oximetry (%) 97 01/05/18 08:31 Constitutional: Yes: No Distress Eyes: Yes: Conjunctiva Clear Cardiovascular: Yes: Regular Rate and Rhythm, S1, S2 Respiratory: Yes: CTA Bilaterally Gastrointestinal: Yes: Normal Bowel Sounds. No: Tenderness Extremities: Yes: Other (L shoulder decreased swelling. + erythema/warmth anteriorly.) Labs: CBC, BMP 01/05/18 07:15 01/05/18 07:15 Assessment/Plan Cellulitis L shoulder ? septic arthritis Uncontrolled diabetes mellitus Azotemia Await c/s Will ask micro lab to hold BC for P. acnes Continue empiric vancomycin/ zosyn Ortho follow up
[2018-01-05] MEDS: LISINOPRIL 5 MG TABLET (FP) PO SCH (10:37)
[2018-01-05] MEDS: FAMOTIDINE 20 MG TABLET PO SCH (10:37)
[2018-01-05] MEDS: VANCOMYCIN 1 GRAM (PRE-DOCKED) 1,000 MG/250 ML BAG IVPB SCH ×2 (10:39→22:00)
--- NOTE | 2018-01-05 11:18 | PN ---
Progress Note, Physician History of Present Illness: Feeling better. Had CT yesterday. More motion with shoulder today. Pain well controlled - Current Medication List Current Medications: Active Medications Acetaminophen (Tylenol -) 650 mg PO Q4H PRN PRN Reason: FEVER Last Admin: 01/04/18 21:27 Dose: 650 mg Famotidine (Pepcid -) 20 mg PO DAILY [facility] Last Admin: 01/05/18 10:37 Dose: 20 mg Vancomycin HCl (Vancomycin (Pre-Docked)) 1,000 mg in 250 mls @ 166.667 mls/hr IVPB BID@1030,2230 [facility]; Protocol Last Admin: 01/05/18 10:39 Dose: 166.667 mls/hr Piperacillin Sod/Tazobactam Sod (Zosyn 3.375gm Ivpb (Pre-Docked)) 3.375 gm in 50 mls @ 100 mls/hr IVPB Q8H-IV JATINDER; Protocol Last Admin: 01/05/18 10:39 Dose: 100 mls/hr Potassium Chloride/Sodium Chloride (1/2ns+20meq Kcl) 20 meq in 1,000 mls @ 75 mls/hr IV ASDIR [facility] Last Admin: 01/04/18 17:11 Dose: 75 mls/hr Insulin Aspart (Novolog Vial Sliding Scale -) 1 vial SQ HS [facility]; Protocol Insulin Aspart (Novolog Vial Sliding Scale -) 1 vial SQ TIDAC [facility]; Protocol Insulin Detemir (Levemir Vial) 20 units SQ HS [facility] Lisinopril (Prinivil) 5 mg PO DAILY [facility] Last Admin: 01/05/18 10:37 Dose: 5 mg Zolpidem Tartrate (Ambien -) 5 mg PO HS PRN PRN Reason: INSOMNIA - Objective Vital Signs: Vital Signs Temperature 98.6 F 01/05/18 10:00 Pulse Rate 74 01/05/18 10:00 Respiratory Rate 18 01/05/18 10:00 Blood Pressure 167/76 01/05/18 10:00 O2 Sat by Pulse Oximetry (%) 97 01/05/18 08:31 Constitutional: Yes: Well Nourished, No Distress, Calm Musculoskeletal: Yes: Other (Left shoulder: approx 5x5cm area of erythema along the superior anterior aspect of the shoulder. Mild diffuse tenderness along this area. No other areas of tenderness. Smooth ROM of shoulder. Good strenght with empty can test. NVID.) Labs: CBC, BMP 01/05/18 07:15 01/05/18 07:15 Assessment/Plan #1 Left shoulder cellulitis -No surgical intervention at this time -Continue ABX
[2018-01-05] MEDS ORDERED: INSULIN (NOVOLOG) ASPART 100 UNITS/ML 10ML VIAL ONE (11:56)
[2018-01-05] MEDS ORDERED: MAGNESIUM 1GM/D5W 100ML - 100 ML IVPB IVPB ONE (14:10)
[2018-01-05] MEDS: DOCUSATE SODIUM 100 MG CAPSULE (FP) PO SCH ×2 (15:24→21:35)
[2018-01-05] MEDS: oxyCODONE HCL 5 MG TABLET PO PRN ×2 (15:27→21:35)
[2018-01-05] MEDS: INSULIN (LEVEMIR) 100 UNITS/ML UNITS SQ SCH (21:45)
[2018-01-06] MEDS: PIPERACILLIN/TAZOB 3.375 GM 3.375 GM/50 ML BAG IVPB SCH ×3 (01:58→17:14)
[2018-01-06] MEDS: INSULIN SLIDING SCALE (NOVOLOG) 1 VIAL SQ SCH ×4 (06:30→22:47)
[2018-01-06] MEDS: DOCUSATE SODIUM 100 MG CAPSULE (FP) PO SCH ×3 (06:30→22:05)
[2018-01-06] MEDS ORDERED: INSULIN (NOVOLOG) ASPART 100 UNITS/ML 10ML VIAL ONE ×4 (06:37→21:44)
[2018-01-06 08:55] LABS: BASO % 0.4 % (0-2.0); EOS % 1.6 % (0-4.5); HEMATOCRIT 34.7 % (35.4-49); HEMOGLOBIN 11.8 GM/dl (11.7-16.9); LYMPH % 13.7 % (8-40); MCH 27.3 pg (25.7-33.7); MCHC 34.1 g/dl (32.0-35.9); MEAN CELL VOLUME 80.1 fl (80-96); MEAN PLT VOLUME 8.1 fl (7.5-11.1); MONO % 6.7 % (3.8-10.2); NEUT % 77.6 % (42.8-82.8); PLATELET COUNT 417 K/MM3 (134-434); RBC 4.33 M/mm3 (4.00-5.60); RDW 13.1 % (11.9-15.9); WHITE BLOOD COUNT 8.8 K/mm3 (4.0-10.8)
--- NOTE | 2018-01-06 09:07 | PN ---
Progress Note (short form) - Note Progress Note: Less left shoulder pain Feels better Blood sugar improving Vital Signs Period Temp Pulse Resp BP Sys/Green Pulse Ox Last 24 Hr 97.4 F-99.3 F 73-93 16-18 155-174/70-89 98-99 PE: AOx3 Neck: Supple, No JVD HEENT: EOMI Lungs: CTA CVS: S1S2 Abd: Bening EXt: No edema. +Swelling Left shoulder Neuro: No focal deficit CMP Sodium 131 mmol/L (136-145) L 01/05/18 07:15 Potassium 4.1 mmol/L (3.5-5.1) 01/05/18 07:15 Chloride 103 mmol/L (98-107) 01/05/18 07:15 Carbon Dioxide 21 mmol/L (22-28) L 01/05/18 07:15 Anion Gap 7 (8-16) L 01/05/18 07:15 BUN 13 mg/dl (7-18) D 01/05/18 07:15 Creatinine 0.9 mg/dl (0.6-1.3) 01/05/18 07:15 Creat Clearance w eGFR > 60 (>60) 01/05/18 07:15 POC Glucometer 222 UNITS (80-120) 01/06/18 06:24 Random Glucose 270 mg/dl (74-106) H D 01/05/18 07:15 Hemoglobin A1c % 13.5 % (4.8-6.0) H 01/03/18 12:45 Lactic Acid 1.5 mmol/L (0.0-2.0) 01/03/18 11:24 Calcium 7.7 mg/dl (8.4-10.2) L 01/05/18 07:15 Phosphorus 3.3 mg/dl (2.5-4.6) 01/05/18 07:15 Magnesium 1.8 mg/dL (1.8-2.4) 01/05/18 07:15 Total Bilirubin 0.3 mg/dl (0.2-1.0) D 01/05/18 07:15 AST 23 U/L (10-42) D 01/05/18 07:15 ALT 21 U/L (10-40) D 01/05/18 07:15 Alkaline Phosphatase 79 U/L (32-92) 01/05/18 07:15 C-Reactive Protein 33.7 MG/DL (0.00-0.3) H 01/03/18 11:24 Total Protein 5.6 g/dl (6.4-8.3) L 01/05/18 07:15 Albumin 1.9 g/dl (3.5-5.0) L 01/05/18 07:15 TSH 1.36 uIU/ml (0.358-3.74) 01/03/18 12:40 Free T4 0.96 ng/dl (0.76-1.16) 01/03/18 12:40 Free T3 3.0 pg/ml (2.0-4.4) 01/03/18 12:40 Current Medications Generic Name Dose Route Start Last Admin Trade Name Freq PRN Reason Stop Dose Admin Acetaminophen 650 mg 01/03/18 14:09 01/04/18 21:27 Tylenol - PO 650 mg Q4H PRN Administration FEVER Docusate Sodium 100 mg 01/05/18 14:45 01/06/18 06:30 Colace - PO 100 mg TID JATINDER Administration Famotidine 20 mg 01/04/18 10:00 01/05/18 10:37 Pepcid - PO 20 mg DAILY JATINDER Administration Vancomycin HCl 1,000 mg in 250 mls @ 166.667 mls/hr 01/04/18 10:30 01/05/18 22:00 Vancomycin (Pre-Docked) IVPB 166.667 mls/hr BID@1030,2230 [facility] Administration Protocol Piperacillin Sod/Tazobactam Sod 3.375 gm in 50 mls @ 100 mls/hr 01/04/18 10: 30 01/06/18 01:58 Zosyn 3.375gm Ivpb (Pre-Docked) IVPB 100 mls/hr Q8H-IV JATINDER Administration Protocol Insulin Aspart 1 vial 01/05/18 08:11 01/05/18 21:40 Novolog Vial Sliding Scale - SQ 8 units HS [facility] Administration Protocol Insulin Aspart 1 vial 01/06/18 09:05 Novolog Vial Sliding Scale - SQ TIDAC [facility] Protocol Insulin Detemir 20 units 01/05/18 22:00 01/05/18 21:45 Levemir Vial SQ 20 units HS [facility] Administration Lisinopril 5 mg 01/05/18 10:00 01/05/18 10:37 Prinivil PO 5 mg DAILY JATINDER Administration Oxycodone HCl 5 mg 01/05/18 14:32 01/05/18 21:35 Roxicodone - PO 5 mg Q6H PRN Administration PAIN LEVEL 7 - 10 Zolpidem Tartrate 5 mg 01/04/18 22:00 Ambien - PO HS PRN INSOMNIA AP: Left shoulder pain/swelling: ?Septic arthritis IV abx Further management as per ID, Ortho T2DM: ?new onset. Levemir 20 units at HS Increase Novolog SS coverage Will continue adjust Insulin dose as necessary nutrition consult Teach pt to self monitor blood sugar and self inject Insulin Will f/u
[2018-01-06 09:08] LABS: ALK PHOS 80 U/L (32-92); ANION GAP 5 (8-16); BILIRUBIN,TOTAL 0.5 mg/dl (0.2-1.0); BLOOD UREA NITROGEN 11 mg/dl (7-18); CHLORIDE 101 mmol/L (98-107); CO2 25 mmol/L (22-28); CREATININE 0.9 mg/dl (0.6-1.3); GLUCOSE,RANDOM 218 mg/dl (74-106); MAGNESIUM 1.8 mg/dL (1.8-2.4); PHOSPHOROUS 3.3 mg/dl (2.5-4.6); SGOT/AST 22 U/L (10-42); SGPT/ALT 25 U/L (10-40); SODIUM 131 mmol/L (136-145); TOT PROT 5.6 g/dl (6.4-8.3)
--- NOTE | 2018-01-06 10:08 | PN ---
Progress Note, Physician History of Present Illness: Awake, alert Reports less shoulder pain, increased ROM Afebrile WBC improved BC no growth - Current Medication List Current Medications: Active Medications Acetaminophen (Tylenol -) 650 mg PO Q4H PRN PRN Reason: FEVER Last Admin: 01/04/18 21:27 Dose: 650 mg Docusate Sodium (Colace -) 100 mg PO TID [facility] Last Admin: 01/06/18 06:30 Dose: 100 mg Famotidine (Pepcid -) 20 mg PO DAILY [facility] Last Admin: 01/05/18 10:37 Dose: 20 mg Vancomycin HCl (Vancomycin (Pre-Docked)) 1,000 mg in 250 mls @ 166.667 mls/hr IVPB BID@1030,2230 [facility]; Protocol Last Admin: 01/05/18 22:00 Dose: 166.667 mls/hr Piperacillin Sod/Tazobactam Sod (Zosyn 3.375gm Ivpb (Pre-Docked)) 3.375 gm in 50 mls @ 100 mls/hr IVPB Q8H-IV [facility]; Protocol Last Admin: 01/06/18 01:58 Dose: 100 mls/hr Insulin Aspart (Novolog Vial Sliding Scale -) 1 vial SQ HS [facility]; Protocol Last Admin: 01/05/18 21:40 Dose: 8 units Insulin Aspart (Novolog Vial Sliding Scale -) 1 vial SQ TIDAC [facility]; Protocol Insulin Detemir (Levemir Vial) 20 units SQ HS [facility] Last Admin: 01/05/18 21:45 Dose: 20 units Lisinopril (Prinivil) 5 mg PO DAILY [facility] Last Admin: 01/05/18 10:37 Dose: 5 mg Oxycodone HCl (Roxicodone -) 5 mg PO Q6H PRN PRN Reason: PAIN LEVEL 7 - 10 Last Admin: 01/05/18 21:35 Dose: 5 mg Zolpidem Tartrate (Ambien -) 5 mg PO HS PRN PRN Reason: INSOMNIA - Objective Vital Signs: Vital Signs Temperature 99.3 F 01/06/18 06:00 Pulse Rate 73 01/06/18 06:00 Respiratory Rate 18 01/06/18 06:00 Blood Pressure 155/70 01/06/18 06:00 O2 Sat by Pulse Oximetry (%) 99 01/06/18 06:00 Constitutional: Yes: No Distress Cardiovascular: Yes: Regular Rate and Rhythm, S1, S2 Respiratory: Yes: CTA Bilaterally Gastrointestinal: Yes: Normal Bowel Sounds, Soft Integumentary: Yes: Other (+ erythema/ induration over distal clavicle) Labs: CBC, BMP 01/06/18 08:30 01/06/18 08:30 Assessment/Plan Cellulitis L shoulder ? septic arthritis Possible soft tissue abscess, osteomyelitis of distal L clavicle Uncontrolled diabetes mellitus Azotemia Obtain MRI L shoulder CT reviewed with radiologist IR consult for bone bx v. aspiration of soft tissue phlegmon Continue empiric vancomycin/ zosyn Check vancomycin level
[2018-01-06] MEDS: LISINOPRIL 5 MG TABLET (FP) PO SCH (10:18)
[2018-01-06] MEDS: FAMOTIDINE 20 MG TABLET PO SCH (10:19)
[2018-01-06] MEDS: VANCOMYCIN 1 GRAM (PRE-DOCKED) 1,000 MG/250 ML BAG IVPB SCH ×3 (10:19→22:47)
[2018-01-06] MEDS: ACETAMINOPHEN 325 MG TABLET (FP) PO PRN (10:44)
[2018-01-06] MEDS: oxyCODONE HCL 5 MG TABLET PO PRN (10:44)
--- NOTE | 2018-01-06 11:59 | PN ---
Physical Exam: SUBJECTIVE: Patient seen and examined, patient reports Ongoing left shoulder pain, denies any tactile fevers OBJECTIVE:Patient is a 67-year-old male, with a past medical history of diabetes patient was admitted from the emergency department for cellulitis failed outpatient therapy and hyperglycemia Vital Signs Period Temp Pulse Resp BP Sys/Green Pulse Ox Last 24 Hr 97.4 F-99.3 F 73-97 16-19 155-174/70-89 98-99 GENERAL: The patient is awake, alert, and fully oriented, in no acute distress. HEAD: Normal with no signs of trauma. EYES: PERRL, extraocular movements intact, sclera anicteric, conjunctiva clear. No ptosis. ENT: Ears normal, nares patent, oropharynx clear without exudates, moist mucous membranes. NECK: Trachea midline, full range of motion, supple. LUNGS: Breath sounds equal, clear to auscultation bilaterally, no wheezes, no crackles, no accessory muscle use. HEART: Regular rate and rhythm, S1, S2 without murmur, rub or gallop. ABDOMEN: Soft, nontender, nondistended, normoactive bowel sounds, no guarding, no rebound, no hepatosplenomegaly, no masses. EXTREMITIES: 2+ pulses, warm, well-perfused, no edema. LEFT UPPER EXTREMITY:4 cm of erythema And induration noted to the left anterior shoulder, with point tenderness, Significant pain upon range of motion, less than 3 second capillary refill +4 radial pulse NEUROLOGICAL: Cranial nerves II through XII grossly intact. Normal speech, gait not observed. PSYCH: Normal mood, normal affect. SKIN: Warm, dry, normal turgor, no rashes or lesions noted Laboratory Results - last 24 hr 01/05/18 01/05/18 01/05/18 12:00 17:17 20:44 WBC RBC Hgb Hct MCV MCH MCHC RDW Plt Count MPV Absolute Neuts (auto) Neutrophils % Lymphocytes % Monocytes % Eosinophils % Basophils % Sodium Potassium Chloride Carbon Dioxide Anion Gap BUN Creatinine Creat Clearance w eGFR POC Glucometer 288 343 371 Random Glucose Calcium Phosphorus Magnesium Total Bilirubin AST ALT Alkaline Phosphatase Total Protein Albumin 01/06/18 01/06/18 01/06/18 06:24 08:30 08:30 WBC 8.8 RBC 4.33 Hgb 11.8 Hct 34.7 L MCV 80.1 MCH 27.3 MCHC 34.1 RDW 13.1 Plt Count 417 MPV 8.1 Absolute Neuts (auto) 6.9 Neutrophils % 77.6 Lymphocytes % 13.7 Monocytes % 6.7 Eosinophils % 1.6 Basophils % 0.4 Sodium 131 L Potassium 4.0 Chloride 101 Carbon Dioxide 25 Anion Gap 5 L BUN 11 Creatinine 0.9 Creat Clearance w eGFR > 60 POC Glucometer 222 Random Glucose 218 H Calcium 8.0 L Phosphorus 3.3 Magnesium 1.8 Total Bilirubin 0.5 D AST 22 ALT 25 Alkaline Phosphatase 80 Total Protein 5.6 L Albumin 2.0 L Active Medications Generic Name Dose Route Start Last Admin Trade Name Freq PRN Reason Stop Dose Admin Acetaminophen 650 mg 01/03/18 14:09 01/06/18 10:44 Tylenol - PO 650 mg Q4H PRN Administration FEVER Docusate Sodium 100 mg 01/05/18 14:45 01/06/18 06:30 Colace - PO 100 mg TID [facility] Administration Famotidine 20 mg 01/04/18 10:00 01/06/18 10:19 Pepcid - PO 20 mg DAILY [facility] Administration Vancomycin HCl 1,000 mg in 250 mls @ 166.667 mls/hr 01/04/18 10:30 01/05/18 22:00 Vancomycin (Pre-Docked) IVPB 166.667 mls/hr BID@1030,2230 [facility] Administration Protocol Piperacillin Sod/Tazobactam Sod 3.375 gm in 50 mls @ 100 mls/hr 01/04/18 10: 30 01/06/18 10:18 Zosyn 3.375gm Ivpb (Pre-Docked) IVPB 100 mls/hr Q8H-IV [facility] Administration Protocol Insulin Aspart 1 vial 01/05/18 08:11 01/05/18 21:40 Novolog Vial Sliding Scale - SQ 8 units HS [facility] Administration Protocol Insulin Aspart 1 vial 01/06/18 09:05 01/06/18 11:58 Novolog Vial Sliding Scale - SQ 14 units TIDAC [facility] Administration Protocol Insulin Detemir 20 units 01/05/18 22:00 01/05/18 21:45 Levemir Vial SQ 20 units HS [facility] Administration Lisinopril 5 mg 01/05/18 10:00 01/06/18 10:18 Prinivil PO 5 mg DAILY [facility] Administration Oxycodone HCl 5 mg 01/05/18 14:32 01/06/18 10:44 Roxicodone - PO 5 mg Q6H PRN Administration PAIN LEVEL 7 - 10 Zolpidem Tartrate 5 mg 01/04/18 22:00 Ambien - PO HS PRN INSOMNIA Microbiology 01/03/18 11:35 Blood - Peripheral Venous Blood Culture - Preliminary NO GROWTH OBTAINED AFTER 72 HOURS, INCUBATION TO CONTINUE FOR 2 DAYS. 01/03/18 11:24 Blood - Peripheral Venous Blood Culture - Preliminary NO GROWTH OBTAINED AFTER 72 HOURS, INCUBATION TO CONTINUE FOR 2 DAYS. 01/03/18 15:59 Urine - Urine Clean Catch Urine Culture - Final NO GROWTH OBTAINED IMAGING MRI of the upper left extremity: Marked heterogeneous soft tissue edema along the superior aspect of the entire acromiom, acromioclavicular joint and distal clavicle especially anteriorly with focal fluid collections in the anterior deltoid muscle with surrounding soft tissue edema and soft tissue edema into the trapezius muscle which is most likely infectious with multiple abscesses. Bone marrow edema of the clavicle and acromium most likely osteomyelitis mild fluid in the acromial clavicular joint which may be consistent with septic arthritis as per the radiologist, Dr Browne CT of upper extremity: Abscess cannot be excluded possible mild erosion of the cortex of the undersurface of the acrominion, distal clavicle multiple air bubbles were obvious cortical disruption questionable osteomyelitis ASSESSMENT/PLAN: 1) Endo diabetes with hyperglycemia - Continue fingersticks before meals and at bedtime with regular insulin coverage and levermir 20 units QHS. - Can Washer consulted and following - Appreciate dietary evaluation 2) ID left shoulder cellulitis septic arthritis of left shoulder - continue vancomycin And Zosyn, Pending vancomycin trough today, will dose Accordingly - MRI of left shoulder reviewed, with ortho (MANUEL Perez) recommends IR drainage, appreciate input of interventional radiologist Dr. Flores - Leukocytosis resolved patient is afebrile infectious disease physician consulted and following. 3) nephrology KATARZYNA - Creatinine 0.9. resolved with IV fluids KATARZYNA secondary to hypovolemia 4) cardiovascular hypertension - start lisinopril 5mg daily, strict monitoring q4h F/E/N - diabetic diet - replete electrolytes prn ppx - scd/david - pepcid dispo: pt requires inpatient admission Problem List - Problems (1) Diabetes mellitus with hyperglycemia Code(s): E11.65 - TYPE 2 DIABETES MELLITUS WITH HYPERGLYCEMIA Visit type - Emergency Visit Emergency Visit: Yes ED Registration Date: 01/03/18 Care time: The patient presented to the Emergency Department on the above date and was hospitalized for further evaluation of their emergent condition. - New Patient This patient is new to me today: No - Critical Care Critical Care patient: No - Discharge Referral Referred to [facility] Med P.C.: No
[2018-01-06] MEDS ORDERED: MAGNESIUM HYDROX 2400MG/30ML ORAL SUSPENSION 30 ML CUP PO PRN (14:09)
[2018-01-06] MEDS: POLYETHYLENE GLYCOL 3350 119 GM BTL PO SCH (14:33)
[2018-01-06 14:34] LABS: INR 1.16 (0.82-1.09); PROTHROMBIN TIME (PATIENT) 12.9 SEC (10.2-13.0)
[2018-01-06] MEDS: INSULIN (LEVEMIR) 100 UNITS/ML UNITS SQ SCH (22:15)
[2018-01-07] MEDS: PIPERACILLIN/TAZOB 3.375 GM 3.375 GM/50 ML BAG IVPB SCH ×3 (01:33→21:39)
[2018-01-07] MEDS: DOCUSATE SODIUM 100 MG CAPSULE (FP) PO SCH ×3 (05:50→21:38)
[2018-01-07] MEDS: INSULIN SLIDING SCALE (NOVOLOG) 1 VIAL SQ SCH ×4 (06:42→21:38)
--- NOTE | 2018-01-07 08:30 | PN ---
Progress Note (short form) - Note Progress Note: For shoulder biopsy Feels better Blood sugar improving Vital Signs Period Temp Pulse Resp BP Sys/Green Pulse Ox Last 24 Hr 97.4 F-99.6 F 71-89 18-23 140-202/71-102 97-100 PE: AOx3 Neck: Supple, No JVD HEENT: EOMI Lungs: CTA CVS: S1S2 Abd: Bening EXt: No edema. +Swelling Left shoulder Neuro: No focal deficit CMP Sodium 131 mmol/L (136-145) L 01/06/18 08:30 Potassium 4.0 mmol/L (3.5-5.1) 01/06/18 08:30 Chloride 101 mmol/L (98-107) 01/06/18 08:30 Carbon Dioxide 25 mmol/L (22-28) 01/06/18 08:30 Anion Gap 5 (8-16) L 01/06/18 08:30 BUN 11 mg/dl (7-18) 01/06/18 08:30 Creatinine 0.9 mg/dl (0.6-1.3) 01/06/18 08:30 Creat Clearance w eGFR > 60 (>60) 01/06/18 08:30 POC Glucometer 205 UNITS (80-120) 01/07/18 05:54 Random Glucose 218 mg/dl (74-106) H 01/06/18 08:30 Hemoglobin A1c % 13.5 % (4.8-6.0) H 01/03/18 12:45 Lactic Acid 1.5 mmol/L (0.0-2.0) 01/03/18 11:24 Calcium 8.0 mg/dl (8.4-10.2) L 01/06/18 08:30 Phosphorus 3.3 mg/dl (2.5-4.6) 01/06/18 08:30 Magnesium 1.8 mg/dL (1.8-2.4) 01/06/18 08:30 Total Bilirubin 0.5 mg/dl (0.2-1.0) D 01/06/18 08:30 AST 22 U/L (10-42) 01/06/18 08:30 ALT 25 U/L (10-40) 01/06/18 08:30 Alkaline Phosphatase 80 U/L (32-92) 01/06/18 08:30 C-Reactive Protein 12.2 MG/DL (0.00-0.3) H 01/06/18 08:30 Total Protein 5.6 g/dl (6.4-8.3) L 01/06/18 08:30 Albumin 2.0 g/dl (3.5-5.0) L 01/06/18 08:30 TSH 1.36 uIU/ml (0.358-3.74) 01/03/18 12:40 Free T4 0.96 ng/dl (0.76-1.16) 01/03/18 12:40 Free T3 3.0 pg/ml (2.0-4.4) 01/03/18 12:40 Current Medications Generic Name Dose Route Start Last Admin Trade Name Freq PRN Reason Stop Dose Admin Acetaminophen 650 mg 01/03/18 14:09 01/06/18 10:44 Tylenol - PO 650 mg Q4H PRN Administration FEVER Docusate Sodium 100 mg 01/05/18 14:45 01/07/18 05:50 Colace - PO Not Given TID [facility] Famotidine 20 mg 01/04/18 10:00 01/06/18 10:19 Pepcid - PO 20 mg DAILY [facility] Administration Vancomycin HCl 1,000 mg in 250 mls @ 166.667 mls/hr 01/04/18 10:30 01/06/18 22:47 Vancomycin (Pre-Docked) IVPB 166.667 mls/hr BID@1030,2230 [facility] Administration Protocol Piperacillin Sod/Tazobactam Sod 3.375 gm in 50 mls @ 100 mls/hr 01/04/18 10: 30 01/07/18 01:33 Zosyn 3.375gm Ivpb (Pre-Docked) IVPB 100 mls/hr Q8H-IV [facility] Administration Protocol Insulin Aspart 1 vial 01/05/18 08:11 01/06/18 22:47 Novolog Vial Sliding Scale - SQ 4 units HS [facility] Administration Protocol Insulin Aspart 1 vial 01/06/18 09:05 01/07/18 06:42 Novolog Vial Sliding Scale - SQ Not Given TIDAC [facility] Protocol Insulin Detemir 20 units 01/05/18 22:00 01/06/18 22:15 Levemir Vial SQ 20 units HS [facility] Administration Lisinopril 5 mg 01/05/18 10:00 01/06/18 10:18 Prinivil PO 5 mg DAILY [facility] Administration Magnesium Hydroxide 30 ml 01/06/18 14:09 Milk Of Magnesia - PO PRN PRN CONSTIPATION Oxycodone HCl 5 mg 01/05/18 14:32 01/06/18 10:44 Roxicodone - PO 5 mg Q6H PRN Administration PAIN LEVEL 7 - 10 Polyethylene Glycol 17 gm 01/06/18 14:15 01/06/18 14:33 Miralax (For Daily Use) - PO 17 gm DAILY [facility] Administration Zolpidem Tartrate 5 mg 01/04/18 22:00 Ambien - PO PRN INSOMNIA AP: Left shoulder pain/swelling: ?Septic arthritis IV abx Further management as per ID, Ortho T2DM: ?new onset. Increase Levemir 24 units at HS Novolog SS coverage Will continue to adjust Insulin dose as necessary Teach pt to self monitor blood sugar and self inject Insulin Will f/u
--- NOTE | 2018-01-07 09:37 | PN ---
Physical Exam: SUBJECTIVE: Patient seen and examined, patient is pending transfer to [facility] for fine needle biopsy of abscesses to left shoulder at interventional radiology OBJECTIVE: patient is a 67-year-old male admitted from the emergency department to the medical surgical unit for sepsis secondary to left shoulder abscesses, septic arthritis and hyperglycemia. Vital Signs Period Temp Pulse Resp BP Sys/Green Pulse Ox Last 24 Hr 97.4 F-99.6 F 72-97 18-20 140-173/71-93 97-98 GENERAL: The patient is awake, alert, and fully oriented, in no acute distress. HEAD: Normal with no signs of trauma. EYES: PERRL, extraocular movements intact, sclera anicteric, conjunctiva clear. No ptosis. ENT: Ears normal, nares patent, oropharynx clear without exudates, moist mucous membranes. NECK: Trachea midline, full range of motion, supple. LUNGS: Breath sounds equal, clear to auscultation bilaterally, no wheezes, no crackles, no accessory muscle use. HEART: Regular rate and rhythm, S1, S2 without murmur, rub or gallop. ABDOMEN: Soft, nontender, nondistended, normoactive bowel sounds, no guarding, no rebound, no hepatosplenomegaly, no masses. EXTREMITIES: 2+ pulses, warm, well-perfused, no edema. LEFT UPPER EXTREMITY: erythema and induration noted to the acromium aspect of shoulder with point tenderness limited range of motion secondary to pain NEUROLOGICAL: Cranial nerves II through XII grossly intact. Normal speech, gait not observed. PSYCH: Normal mood, normal affect. SKIN: Warm, dry, normal turgor, no rashes or lesions noted Laboratory Results - last 24 hr 01/06/18 01/06/18 01/06/18 08:30 08:30 11:48 ESR PT with INR INR POC Glucometer 346 C-Reactive Protein 12.2 H Vancomycin Pre-Dose 11.09 H 01/06/18 01/06/18 01/06/18 12:00 14:20 16:36 ESR 123 H PT with INR 12.9 INR 1.16 POC Glucometer 280 C-Reactive Protein Vancomycin Pre-Dose 01/06/18 01/07/18 21:05 05:54 ESR PT with INR INR POC Glucometer 299 205 C-Reactive Protein Vancomycin Pre-Dose Active Medications Generic Name Dose Route Start Last Admin Trade Name Freq PRN Reason Stop Dose Admin Acetaminophen 650 mg 01/03/18 14:09 01/06/18 10:44 Tylenol - PO 650 mg Q4H PRN Administration FEVER Docusate Sodium 100 mg 01/05/18 14:45 01/07/18 05:50 Colace - PO Not Given TID [facility] Famotidine 20 mg 01/04/18 10:00 01/06/18 10:19 Pepcid - PO 20 mg DAILY [facility] Administration Vancomycin HCl 1,000 mg in 250 mls @ 166.667 mls/hr 01/04/18 10:30 01/06/18 22:47 Vancomycin (Pre-Docked) IVPB 166.667 mls/hr BID@1030,2230 [facility] Administration Protocol Piperacillin Sod/Tazobactam Sod 3.375 gm in 50 mls @ 100 mls/hr 01/04/18 10: 30 01/07/18 01:33 Zosyn 3.375gm Ivpb (Pre-Docked) IVPB 100 mls/hr Q8H-IV [facility] Administration Protocol Insulin Aspart 1 vial 01/05/18 08:11 01/06/18 22:47 Novolog Vial Sliding Scale - SQ 4 units HS [facility] Administration Protocol Insulin Aspart 1 vial 01/06/18 09:05 01/07/18 06:42 Novolog Vial Sliding Scale - SQ Not Given TIDAC [facility] Protocol Insulin Detemir 20 units 01/05/18 22:00 01/06/18 22:15 Levemir Vial SQ 20 units HS [facility] Administration Lisinopril 5 mg 01/05/18 10:00 01/06/18 10:18 Prinivil PO 5 mg DAILY [facility] Administration Magnesium Hydroxide 30 ml 01/06/18 14:09 Milk Of Magnesia - PO PRN PRN CONSTIPATION Oxycodone HCl 5 mg 01/05/18 14:32 01/06/18 10:44 Roxicodone - PO 5 mg Q6H PRN Administration PAIN LEVEL 7 - 10 Polyethylene Glycol 17 gm 01/06/18 14:15 01/06/18 14:33 Miralax (For Daily Use) - PO 17 gm DAILY [facility] Administration Zolpidem Tartrate 5 mg 01/04/18 22:00 Ambien - PO HS PRN INSOMNIA Microbiology 01/03/18 11:35 Blood - Peripheral Venous Blood Culture - Preliminary NO GROWTH OBTAINED AFTER 96 HOURS, INCUBATION TO CONTINUE FOR 1 DAYS. 01/03/18 11:24 Blood - Peripheral Venous Blood Culture - Preliminary NO GROWTH OBTAINED AFTER 96 HOURS, INCUBATION TO CONTINUE FOR 1 DAYS. 01/03/18 15:59 Urine - Urine Clean Catch Urine Culture - Final NO GROWTH OBTAINED IMAGING MRI of the upper left extremity: Marked heterogeneous soft tissue edema along the superior aspect of the entire acromiom, acromioclavicular joint and distal clavicle especially anteriorly with focal fluid collections in the anterior deltoid muscle with surrounding soft tissue edema and soft tissue edema into the trapezius muscle which is most likely infectious with multiple abscesses. Bone marrow edema of the clavicle and acromium most likely osteomyelitis mild fluid in the acromial clavicular joint which may be consistent with septic arthritis as per the radiologist, Dr Browne CT of upper extremity: Abscess cannot be excluded possible mild erosion of the cortex of the undersurface of the acrominion, distal clavicle multiple air bubbles were obvious cortical disruption questionable osteomyelitis ASSESSMENT/PLAN: 1) Endo diabetes with hyperglycemia - Continue fingersticks before meals and at bedtime with regular insulin coverage and levermir 20 units QHS. - Retail Sales Consultant consulted and following - Appreciate dietary evaluation 2) ID left shoulder cellulitis septic arthritis of left shoulder - continue vancomycin And Zosyn, vancomycin trough noted, continue vancomycin bid - pending IR today for fine-needle biopsy - Leukocytosis resolved patient is afebrile infectious disease physician consulted and following. 3) nephrology KATARZYNA - Creatinine 0.9. resolved with IV fluids KATARZYNA secondary to hypovolemia 4) cardiovascular hypertension - bloood pressure remains elevated increase lisinopril to 10mg daily. - strict monitoring q4h F/E/N - diabetic diet - replete electrolytes prn ppx - scd/david - pepcid dispo: pt requires inpatient admission Problem List - Problems (1) Diabetes mellitus with hyperglycemia Code(s): E11.65 - TYPE 2 DIABETES MELLITUS WITH HYPERGLYCEMIA Visit type - Emergency Visit Emergency Visit: Yes ED Registration Date: 01/03/18 Care time: The patient presented to the Emergency Department on the above date and was hospitalized for further evaluation of their emergent condition. - New Patient This patient is new to me today: No - Critical Care Critical Care patient: No - Discharge Referral Referred to [facility] Med P.C.: No
[2018-01-07 11:18] LABS: EOS % 1.3 % (0-4.5); HEMATOCRIT 37.1 % (35.4-49); HEMOGLOBIN 12.7 GM/dL (11.7-16.9); LYMPH % 13.8 % (8-40); MCH 27.5 pg (25.7-33.7); MCHC 34.1 g/dl (32.0-35.9); MEAN CELL VOLUME 80.5 fl (80-96); MONO % 8.1 % (3.8-10.2); NEUT % 75.8 % (42.8-82.8); PLATELET COUNT 480 K/MM3 (134-434); RBC 4.61 M/mm3 (4.00-5.60); RDW 14.3 % (11.9-15.9); WHITE BLOOD COUNT 9.6 K/mm3 (4.0-10.0)
[2018-01-07 11:37] LABS: ALBUMIN 2.5 g/dl (3.4-5.0); ANION GAP 9 (8-16); BILIRUBIN,TOTAL 0.5 mg/dL (0.2-1.0); BLOOD UREA NITROGEN 10 mg/dL (7-18); CALCIUM 8.4 mg/dL (8.5-10.1); CHLORIDE 100 mmol/L (98-107); CO2 26 mmol/L (21-32); CREATININE 1.1 mg/dL (0.7-1.3); GLUCOSE,RANDOM 232 mg/dL (74-106); POTASSIUM 4.7 mmol/L (3.5-5.1); SGPT/ALT 42 U/L (12-78); SODIUM 135 mmol/L (136-145); TOT PROT 7.1 g/dl (6.4-8.2)
[2018-01-07 11:47] LABS: ALK PHOS 121 U/L (45-117); MAGNESIUM 2.1 mg/dL (1.8-2.4); PHOSPHOROUS 3.1 mg/dL (2.5-4.9); SGOT/AST 30 U/L (15-37)
[2018-01-07] MEDS ORDERED: LISINOPRIL 10 MG TABLET (FP) PO SCH (13:16)
--- NOTE | 2018-01-07 13:31 | PN ---
Progress Note, Physician History of Present Illness: Awake, alert Reports less shoulder pain, increased ROM Afebrile WBC improved BC no growth MRI findings noted - Current Medication List Current Medications: Active Medications Acetaminophen (Tylenol -) 650 mg PO Q4H PRN PRN Reason: FEVER Last Admin: 01/06/18 10:44 Dose: 650 mg Docusate Sodium (Colace -) 100 mg PO TID [facility] Last Admin: 01/07/18 05:50 Dose: Not Given Famotidine (Pepcid -) 20 mg PO DAILY [facility] Last Admin: 01/06/18 10:19 Dose: 20 mg Vancomycin HCl (Vancomycin (Pre-Docked)) 1,000 mg in 250 mls @ 166.667 mls/hr IVPB BID@1030,2230 [facility]; Protocol Last Admin: 01/06/18 22:47 Dose: 166.667 mls/hr Piperacillin Sod/Tazobactam Sod (Zosyn 3.375gm Ivpb (Pre-Docked)) 3.375 gm in 50 mls @ 100 mls/hr IVPB Q8H-IV [facility]; Protocol Last Admin: 01/07/18 01:33 Dose: 100 mls/hr Insulin Aspart (Novolog Vial Sliding Scale -) 1 vial SQ HS [facility]; Protocol Last Admin: 01/06/18 22:47 Dose: 4 units Insulin Aspart (Novolog Vial Sliding Scale -) 1 vial SQ TIDAC [facility]; Protocol Last Admin: 01/07/18 06:42 Dose: Not Given Insulin Detemir (Levemir Vial) 24 units SQ [facility] Lisinopril (Prinivil) 10 mg PO DAILY [facility] Magnesium Hydroxide (Milk Of Magnesia -) 30 ml PO PRN PRN PRN Reason: CONSTIPATION Oxycodone HCl (Roxicodone -) 5 mg PO Q6H PRN PRN Reason: PAIN LEVEL 7 - 10 Last Admin: 01/06/18 10:44 Dose: 5 mg Polyethylene Glycol (Miralax (For Daily Use) -) 17 gm PO DAILY [facility] Last Admin: 01/06/18 14:33 Dose: 17 gm Zolpidem Tartrate (Ambien -) 5 mg PO HS PRN PRN Reason: INSOMNIA - Objective Vital Signs: Vital Signs Temperature 98.4 F 01/07/18 09:19 Pulse Rate 71 01/07/18 12:46 Respiratory Rate 22 06/22/18 12:46 Blood Pressure 179/102 01/07/18 12:46 O2 Sat by Pulse Oximetry (%) 100 01/07/18 12:46 Constitutional: Yes: No Distress Eyes: Yes: Conjunctiva Clear Cardiovascular: Yes: Regular Rate and Rhythm, S1, S2 Respiratory: Yes: CTA Bilaterally Gastrointestinal: Yes: Normal Bowel Sounds, Soft. No: Tenderness Extremities: Yes: Other (+ well-demarcated area of erythema/ induration over L clavicle. Decreased L shoulder swelling) Labs: CBC, BMP 01/07/18 10:17 01/07/18 10:17 INR, PTT INR 1.16 (0.82-1.09) 01/06/18 14:20 Assessment/Plan Cellulitis L shoulder ? septic arthritis Soft tissue abscesses , osteomyelitis of distal L clavicle Uncontrolled diabetes mellitus Azotemia IR for bone bx v. aspiration of soft tissue abscess Continue empiric vancomycin/ zosyn pending c/s Hold aspirate c/s for P.acnes
[2018-01-07] MEDS ORDERED: INSULIN (NOVOLOG) ASPART 100 UNITS/ML 10ML VIAL ONE ×3 (14:33→21:33)
[2018-01-07] MEDS: LISINOPRIL 10 MG TABLET (FP) PO SCH (14:34)
[2018-01-07] MEDS: FAMOTIDINE 20 MG TABLET PO SCH (14:35)
[2018-01-07] MEDS: POLYETHYLENE GLYCOL 3350 119 GM BTL PO SCH (14:35)
[2018-01-07] MEDS: VANCOMYCIN 1 GRAM (PRE-DOCKED) 1,000 MG/250 ML BAG IVPB SCH (14:36)
[2018-01-07] MEDS: ACETAMINOPHEN 325 MG TABLET (FP) PO PRN ×2 (14:49→21:40)
[2018-01-07] MEDS: oxyCODONE HCL 5 MG TABLET PO PRN ×2 (14:51→21:41)
[2018-01-07] MEDS ORDERED: ENALAPRILAT DIHYDRATE 1.25 MG/1 ML VIAL IVPB ONE (15:08)
--- NOTE | 2018-01-07 16:31 | PN ---
Progress Note (short form) - Note Progress Note: Pt lying comf in bed. AF VSS LUE improved but still present erythema induration improved shoulder ROM wbc trending down a/p: L shoulder infection -MRI reviewed -agree with plan for IR -can consider I+D if not improving after aspiration -continue abx
--- NOTE | 2018-01-07 16:33 | PN ---
Progress Note (short form) - Note Progress Note: Pt just returned from IR aspiration Reports feeling about the same as yesterday Last Vital Signs Temp Pulse Resp BP Pulse Ox 98.4 F 100 H 18 199/77 100 01/07/18 14:30 01/07/18 14:30 01/07/18 14:30 01/07/18 14:30 01/07/18 12:46 LUE persistent induration dressing from aspiration CDI mild tenderness near FROM shoulder NVID Laboratory Results - last 24 hr 01/06/18 01/06/18 01/07/18 16:36 21:05 05:54 WBC RBC Hgb Hct MCV MCH MCHC RDW Plt Count MPV Absolute Neuts (auto) Neutrophils % Lymphocytes % Monocytes % Eosinophils % Basophils % Nucleated RBC % Sodium Potassium Chloride Carbon Dioxide Anion Gap BUN Creatinine Creat Clearance w eGFR POC Glucometer 280 299 205 Random Glucose Calcium Phosphorus Magnesium Total Bilirubin AST ALT Alkaline Phosphatase Total Protein Albumin 01/07/18 01/07/18 01/07/18 10:17 10:17 14:15 WBC 9.6 RBC 4.61 Hgb 12.7 Hct 37.1 MCV 80.5 MCH 27.5 MCHC 34.1 RDW 14.3 Plt Count 480 H MPV 8.0 Absolute Neuts (auto) 7.3 Neutrophils % 75.8 Lymphocytes % 13.8 Monocytes % 8.1 Eosinophils % 1.3 Basophils % 1.0 Nucleated RBC % 0 Sodium 135 L Potassium 4.7 Chloride 100 Carbon Dioxide 26 Anion Gap 9 BUN 10 Creatinine 1.1 Creat Clearance w eGFR > 60 POC Glucometer 300 Random Glucose 232 H Calcium 8.4 L Phosphorus 3.1 Magnesium 2.1 Total Bilirubin 0.5 AST 30 ALT 42 Alkaline Phosphatase 121 H Total Protein 7.1 Albumin 2.5 L a/p: L shoulder infection -will observe response s/p aspiration -f/u cx -cont abx -consider I+D if not better
[2018-01-07] MEDS ORDERED: INSULIN (LEVEMIR) 100 UNITS/ML UNITS SQ SCH (22:00)
[2018-01-08] MEDS: VANCOMYCIN 1 GRAM (PRE-DOCKED) 1,000 MG/250 ML BAG IVPB SCH ×3 (01:33→13:58)
[2018-01-08] MEDS: PIPERACILLIN/TAZOB 3.375 GM 3.375 GM/50 ML BAG IVPB SCH ×4 (06:43→22:19)
[2018-01-08] MEDS: DOCUSATE SODIUM 100 MG CAPSULE (FP) PO SCH ×3 (06:43→22:19)
[2018-01-08] MEDS: ACETAMINOPHEN 325 MG TABLET (FP) PO PRN ×3 (07:01→22:20)
[2018-01-08] MEDS: oxyCODONE HCL 5 MG TABLET PO PRN ×3 (07:01→22:56)
[2018-01-08] MEDS ORDERED: INSULIN (NOVOLOG) ASPART 100 UNITS/ML 10ML VIAL ONE ×4 (07:29→22:16)
[2018-01-08] MEDS: INSULIN SLIDING SCALE (NOVOLOG) 1 VIAL SQ SCH ×4 (08:30→22:18)
[2018-01-08] MEDS: LISINOPRIL 10 MG TABLET (FP) PO SCH (09:49)
[2018-01-08] MEDS: FAMOTIDINE 20 MG TABLET PO SCH (09:49)
[2018-01-08] MEDS: POLYETHYLENE GLYCOL 3350 119 GM BTL PO SCH (09:49)
[2018-01-08] MEDS: LISINOPRIL 5 MG TABLET (FP) PO SCH (11:54)
--- NOTE | 2018-01-08 16:48 | PN ---
Progress Note (short form) - Note Progress Note: Feels better Blood sugar stille uncontrolled Vital Signs Period Temp Pulse Resp BP Sys/Green Pulse Ox Last 24 Hr 97.9 F-98.4 F 71-81 17-18 141-163/58-80 97-100 PE: AOx3 Neck: Supple, No JVD HEENT: EOMI Lungs: CTA CVS: S1S2 Abd: Bening EXt: No edema. +Swelling Left shoulder Neuro: No focal deficit CMP Sodium 135 mmol/L (136-145) L 01/07/18 10:17 Potassium 4.7 mmol/L (3.5-5.1) 01/07/18 10:17 Chloride 100 mmol/L (98-107) 01/07/18 10:17 Carbon Dioxide 26 mmol/L (21-32) 01/07/18 10:17 Anion Gap 9 (8-16) 01/07/18 10:17 BUN 10 mg/dL (7-18) 01/07/18 10:17 Creatinine 1.1 mg/dL (0.7-1.3) 01/07/18 10:17 Creat Clearance w eGFR > 60 (>60) 01/07/18 10:17 POC Glucometer 346 UNITS (80-120) 01/08/18 11:46 Random Glucose 232 mg/dL (74-106) H 01/07/18 10:17 Hemoglobin A1c % 13.5 % (4.8-6.0) H 01/03/18 12:45 Lactic Acid 1.5 mmol/L (0.0-2.0) 01/03/18 11:24 Calcium 8.4 mg/dL (8.5-10.1) L 01/07/18 10:17 Phosphorus 3.1 mg/dL (2.5-4.9) 01/07/18 10:17 Magnesium 2.1 mg/dL (1.8-2.4) 01/07/18 10:17 Total Bilirubin 0.5 mg/dL (0.2-1.0) 01/07/18 10:17 AST 30 U/L (15-37) 01/07/18 10:17 ALT 42 U/L (12-78) 01/07/18 10:17 Alkaline Phosphatase 121 U/L (45-117) H 01/07/18 10:17 C-Reactive Protein 12.2 MG/DL (0.00-0.3) H 01/06/18 08:30 Total Protein 7.1 g/dl (6.4-8.2) 01/07/18 10:17 Albumin 2.5 g/dl (3.4-5.0) L 01/07/18 10:17 TSH 1.36 uIU/ml (0.358-3.74) 01/03/18 12:40 Free T4 0.96 ng/dl (0.76-1.16) 01/03/18 12:40 Free T3 3.0 pg/ml (2.0-4.4) 01/03/18 12:40 Current Medications Generic Name Dose Route Start Last Admin Trade Name Freq PRN Reason Stop Dose Admin Acetaminophen 650 mg 01/03/18 14:09 01/08/18 12:27 Tylenol - PO 650 mg Q4H PRN Administration FEVER Docusate Sodium 100 mg 01/05/18 14:45 01/08/18 13:57 Colace - PO 100 mg TID JATINDER Administration Famotidine 20 mg 01/04/18 10:00 01/08/18 09:49 Pepcid - PO 20 mg DAILY JATINDER Administration Piperacillin Sod/Tazobactam Sod 3.375 gm in 50 mls @ 100 mls/hr 01/07/18 14: 30 01/08/18 13:57 Zosyn 3.375gm Ivpb (Pre-Docked) IVPB 100 mls/hr Q8H JATINDER Administration Protocol Vancomycin HCl 1,000 mg in 250 mls @ 166.667 mls/hr 01/07/18 14:30 01/08/18 13:58 Vancomycin (Pre-Docked) IVPB 166.667 mls/hr Q12H JATINDER Administration Protocol Insulin Aspart 1 vial 01/05/18 08:11 01/07/18 21:38 Novolog Vial Sliding Scale - SQ 2 units HS [facility] Administration Protocol Insulin Aspart 1 vial 01/06/18 09:05 01/08/18 11:53 Novolog Vial Sliding Scale - SQ 14 units TIDAC [facility] Administration Protocol Insulin Detemir 24 units 01/07/18 22:00 01/07/18 21:38 Levemir Vial SQ 24 units HS [facility] Administration Lisinopril 10 mg 01/07/18 14:30 01/08/18 09:49 Prinivil PO 10 mg DAILY JATINDER Administration Magnesium Hydroxide 30 ml 01/06/18 14:09 Milk Of Magnesia - PO PRN PRN CONSTIPATION Polyethylene Glycol 17 gm 01/06/18 14:15 01/08/18 09:49 Miralax (For Daily Use) - PO Not Given DAILY JATINDER Zolpidem Tartrate 5 mg 01/04/18 22:00 Ambien - PO HS PRN INSOMNIA AP: Left shoulder pain/swelling: ?Septic arthritis IV abx Further management as per ID, Ortho T2DM: ?new onset: Uncontrolled Chart reviewed S/P needle aspiration of Left shoulder joind Increase Levemir 15 units BID Increase Novolog SS coverage Will continue to adjust Insulin dose as necessary Teach pt to self monitor blood sugar and self inject Insulin On Vanco and Zosyn Will f/u
[2018-01-08] MEDS: INSULIN (LEVEMIR) 100 UNITS/ML UNITS SQ SCH (22:18)
--- NOTE | 2018-01-08 22:32 | PN ---
Physical Exam: SUBJECTIVE: Patient seen and examined. OBJECTIVE: Vital Signs Period Temp Pulse Resp BP Sys/Green Pulse Ox Last 24 Hr 97.9 F-98.7 F 70-81 18-20 141-173/58-77 97-100 Laboratory Results - last 24 hr 01/08/18 01/08/18 01/08/18 06:22 11:46 16:28 POC Glucometer 247 346 259 Active Medications Generic Name Dose Route Start Last Admin Trade Name Freq PRN Reason Stop Dose Admin Acetaminophen 650 mg 01/03/18 14:09 01/08/18 22:20 Tylenol - PO 650 mg Q4H PRN Administration FEVER Docusate Sodium 100 mg 01/05/18 14:45 01/08/18 22:19 Colace - PO 100 mg TID JATINDER Administration Famotidine 20 mg 01/04/18 10:00 01/08/18 09:49 Pepcid - PO 20 mg DAILY JATINDER Administration Piperacillin Sod/Tazobactam Sod 3.375 gm in 50 mls @ 100 mls/hr 01/07/18 14: 30 01/08/18 22:19 Zosyn 3.375gm Ivpb (Pre-Docked) IVPB 100 mls/hr Q8H [facility]INDER Administration Protocol Vancomycin HCl 1,000 mg in 250 mls @ 166.667 mls/hr 01/07/18 14:30 01/08/18 13:58 Vancomycin (Pre-Docked) IVPB 166.667 mls/hr Q12H J[facility]INDER Administration Protocol Insulin Aspart 1 vial 01/05/18 08:11 01/08/18 22:18 Novolog Vial Sliding Scale - SQ 2 units HS JATINDER Administration Protocol Insulin Aspart 1 vial 01/08/18 16:49 Novolog Vial Sliding Scale - SQ TIDAC [facility] Protocol Insulin Detemir 16 units 01/08/18 22:00 01/08/18 22:18 Levemir Vial SQ 16 units BID@0700,2200 JATINDER Administration Lisinopril 10 mg 01/07/18 14:30 01/08/18 09:49 Prinivil PO 10 mg DAILY JATINDER Administration Magnesium Hydroxide 30 ml 01/06/18 14:09 Milk Of Magnesia - PO PRN PRN CONSTIPATION Oxycodone HCl 5 mg 01/08/18 22:30 Roxicodone - PO Q6H PRN PAIN LEVEL 6-10 Polyethylene Glycol 17 gm 01/06/18 14:15 01/08/18 09:49 Miralax (For Daily Use) - PO Not Given DAILY JATINDER Zolpidem Tartrate 5 mg 01/04/18 22:00 Ambien - PO HS PRN INSOMNIA IMAGING MRI of the upper left extremity: Marked heterogeneous soft tissue edema along the superior aspect of the entire acromiom, acromioclavicular joint and distal clavicle especially anteriorly with focal fluid collections in the anterior deltoid muscle with surrounding soft tissue edema and soft tissue edema into the trapezius muscle which is most likely infectious with multiple abscesses. Bone marrow edema of the clavicle and acromium most likely osteomyelitis mild fluid in the acromial clavicular joint which may be consistent with septic arthritis as per the radiologist, Dr Browne CT of upper extremity: Abscess cannot be excluded possible mild erosion of the cortex of the undersurface of the acrominion, distal clavicle multiple air bubbles were obvious cortical disruption questionable osteomyelitis ASSESSMENT/PLAN 67 year-old male with a PMH significant for IDDM, admitted for left shoulder cellulitis, concern for septic joint. Left shoulder cellulitis --continue vanc and zosyn --01/07: aspiration performed by IR, body fluid staph latex positive; per ID, keep culture for 14 days to r/o P.acnes IDDM --seen and evaluated by endo, Levemir BID and increased sliding scale coverage KATARZYNA, resolved --Cr 1.8 on admission, treated with IV fluids, 1.1 today Hypertension --BP persistently elevated --increase lisinopril to 20mg, add metoprolol 12.5mg BID and titrate as indicated DVT prophylaxis: subq heparin Visit type - Emergency Visit Emergency Visit: Yes ED Registration Date: 01/03/18 Care time: The patient presented to the Emergency Department on the above date and was hospitalized for further evaluation of their emergent condition. - New Patient This patient is new to me today: Yes Date on this admission: 01/09/18 - Critical Care Critical Care patient: No
[2018-01-09] MEDS: VANCOMYCIN 1 GRAM (PRE-DOCKED) 1,000 MG/250 ML BAG IVPB SCH ×2 (02:02→13:45)
[2018-01-09] MEDS: PIPERACILLIN/TAZOB 3.375 GM 3.375 GM/50 ML BAG IVPB SCH ×3 (06:13→21:40)
[2018-01-09] MEDS: DOCUSATE SODIUM 100 MG CAPSULE (FP) PO SCH ×4 (06:15→21:22)
[2018-01-09] MEDS: INSULIN (LEVEMIR) 100 UNITS/ML UNITS SQ SCH ×2 (06:15→22:33)
[2018-01-09] MEDS: INSULIN SLIDING SCALE (NOVOLOG) 1 VIAL SQ SCH ×6 (07:24→21:40)
[2018-01-09] MEDS: HEPARIN NA (PORCINE) 5,000 UNITS/ML 1ML VIAL SQ SCH ×3 (07:24→21:22)
--- NOTE | 2018-01-09 08:55 | PN ---
Physical Exam: SUBJECTIVE: Patient seen and examined at bedside. Reports left shoulder pain improved, pain scale 2/10, c/p constipation, denies cp, sob, palpitations,fever , chills,abdominal pain, N/V/D or urinary symptoms. OBJECTIVE: Vital Signs Period Temp Pulse Resp BP Sys/Green Pulse Ox Last 24 Hr 97.9 F-98.7 F 70-81 18-20 141-173/58-77 95-100 GENERAL: The patient is awake, alert, and fully oriented, in no acute distress. HEAD: Normal with no signs of trauma. EYES: PERRL, extraocular movements intact, sclera anicteric, conjunctiva clear. No ptosis. ENT: Ears normal, nares patent, oropharynx clear without exudates, moist mucous membranes. NECK: Trachea midline, full range of motion, supple. LUNGS: Breath sounds equal, clear to auscultation bilaterally, no wheezes, no crackles, no accessory muscle use. HEART: Regular rate and rhythm, S1, S2 without murmur, rub or gallop. ABDOMEN: Soft, nontender, nondistended, normoactive bowel sounds, no guarding, no rebound, no hepatosplenomegaly, no masses. EXTREMITIES: left shoulder + swelling, dsg intact, no bleeding, ROM intact 2+ pulses, warm, well-perfused, LE's no edema. NEUROLOGICAL: Cranial nerves II through XII grossly intact. Normal speech, gait not observed. PSYCH: Normal mood, normal affect. SKIN: Warm, dry, normal turgor, no rashes or lesions noted Laboratory Results - last 24 hr 01/08/18 01/08/18 01/08/18 11:46 16:28 22:15 POC Glucometer 346 259 229 01/09/18 06:12 POC Glucometer 229 Active Medications Generic Name Dose Route Start Last Admin Trade Name Freq PRN Reason Stop Dose Admin Acetaminophen 650 mg 01/03/18 14:09 01/08/18 22:20 Tylenol - PO 650 mg Q4H PRN Administration FEVER Docusate Sodium 100 mg 01/05/18 14:45 01/09/18 06:26 Colace - PO Not Given TID JATINDER Famotidine 20 mg 01/04/18 10:00 01/08/18 09:49 Pepcid - PO 20 mg DAILY JATINDER Administration Heparin Sodium (Porcine) 5,000 unit 01/09/18 07:00 01/09/18 07:24 Heparin - SQ 5,000 unit TID JATINDER Administration Piperacillin Sod/Tazobactam Sod 3.375 gm in 50 mls @ 100 mls/hr 01/07/18 14: 30 01/09/18 06:13 Zosyn 3.375gm Ivpb (Pre-Docked) IVPB 100 mls/hr Q8H [facility] Administration Protocol Vancomycin HCl 1,000 mg in 250 mls @ 166.667 mls/hr 01/07/18 14:30 01/09/18 02:02 Vancomycin (Pre-Docked) IVPB 166.667 mls/hr Q12H [facility] Administration Protocol Insulin Aspart 1 vial 01/05/18 08:11 01/08/18 22:18 Novolog Vial Sliding Scale - SQ 2 units HS [facility] Administration Protocol Insulin Aspart 1 vial 01/08/18 16:49 01/09/18 07:24 Novolog Vial Sliding Scale - SQ 2 units TIDAC [facility] Administration Protocol Insulin Detemir 16 units 01/08/18 22:00 01/09/18 06:15 Levemir Vial SQ 16 units BID@0700,2200 [facility] Administration Lisinopril 20 mg 01/09/18 06:42 Prinivil PO DAILY [facility] Magnesium Hydroxide 30 ml 01/06/18 14:09 Milk Of Magnesia - PO PRN PRN CONSTIPATION Metoprolol Tartrate 12.5 mg 01/09/18 10:00 Lopressor - PO BID [facility] Oxycodone HCl 5 mg 01/08/18 22:30 01/08/18 22:56 Roxicodone - PO 5 mg Q6H PRN Administration PAIN LEVEL 6-10 Polyethylene Glycol 17 gm 01/06/18 14:15 01/08/18 09:49 Miralax (For Daily Use) - PO Not Given DAILY [facility] Zolpidem Tartrate 5 mg 01/04/18 22:00 Ambien - PO HS PRN INSOMNIA Microbiology 01/07/18 12:44 Body Fluid - Other Gram Stain - Final 01/07/18 12:44 Body Fluid - Other Body Fluid Culture - Preliminary Staphylococcus Latex Coag Pos 01/07/18 12:44 Shoulder - Left RANDAL Preparation - Preliminary 01/07/18 12:44 Shoulder - Left Fungal Culture - Preliminary 01/03/18 11:35 Blood - Peripheral Venous Blood Culture - Final NO GROWTH AFTER 5 DAYS INCUBATION 01/03/18 11:24 Blood - Peripheral Venous Blood Culture - Final NO GROWTH AFTER 5 DAYS INCUBATION 01/03/18 15:59 Urine - Urine Clean Catch Urine Culture - Final NO GROWTH OBTAINED IMAGING MRI of the upper left extremity: Marked heterogeneous soft tissue edema along the superior aspect of the entire acromiom, acromioclavicular joint and distal clavicle especially anteriorly with focal fluid collections in the anterior deltoid muscle with surrounding soft tissue edema and soft tissue edema into the trapezius muscle which is most likely infectious with multiple abscesses. Bone marrow edema of the clavicle and acromium most likely osteomyelitis mild fluid in the acromial clavicular joint which may be consistent with septic arthritis as per the radiologist, Dr Browne CT of upper extremity: Abscess cannot be excluded possible mild erosion of the cortex of the undersurface of the acrominion, distal clavicle multiple air bubbles were obvious cortical disruption questionable osteomyelitis ASSESSMENT/PLAN: The patient is a 67-year-old male with primary history significant for DM, admitted with sepsis secondary to left shoulder abscesses, septic arthritis and hyperglycemia. * Uncontrolled DM - over 800 on admission - BS improving - Hgb Alc 13.5 - endo following - will continue on regular insulin coverage and Levermir 16 units BID -FS AC& HS -Appreciate dietary evaluation *Left shoulder cellulitis-septic arthritis of left shoulder -- s/p needle aspiration and biopsy by IR-01/07: - ID following -body fluid staph latex positive; per ID, keep culture for 14 days to r/o P.acnes - will cotn on vancomycin and Zosyn -Vancomycin trough level- WNL - remains afebrile with no leukocytosis - s/p needle aspiration and biopsy by IR - abnormal ESR - pain control -plan I+D if not better * KATARZYNA - resolved - s/p IVF *Hypertension- BP improving -will cont on Lisinopril and Lopressor -will monitor BP closely * Constipation - will cont on Laxatives - monitor for BM *F/E/N - diabetic diet - replete electrolytes prn VTE prophylaxis: scd/david/Hep GI prophylaxis:- Pepcid Dispo: Pt requires inpatient admission. Visit type - Emergency Visit Emergency Visit: Yes ED Registration Date: 01/03/18 Care time: The patient presented to the Emergency Department on the above date and was hospitalized for further evaluation of their emergent condition. - New Patient This patient is new to me today: Yes Date on this admission: 01/09/18 - Critical Care Critical Care patient: No
[2018-01-09 09:10] LABS: BASO % 0.3 % (0-2.0); EOS % 1.6 % (0-4.5); HEMATOCRIT 33.9 % (35.4-49); HEMOGLOBIN 11.4 GM/dl (11.7-16.9); LYMPH % 17.1 % (8-40); MCH 27.3 pg (25.7-33.7); MCHC 33.6 g/dl (32.0-35.9); MEAN CELL VOLUME 81.1 fl (80-96); MONO % 7.9 % (3.8-10.2); NEUT % 73.1 % (42.8-82.8); PLATELET COUNT 598 K/MM3 (134-434); RBC 4.18 M/mm3 (4.00-5.60); WHITE BLOOD COUNT 9.2 K/mm3 (4.0-10.8)
[2018-01-09 09:17] LABS: ALBUMIN 2.3 g/dl (3.5-5.0); ALK PHOS 97 U/L (32-92); ANION GAP 9 (8-16); BILIRUBIN,TOTAL 0.5 mg/dl (0.2-1.0); BLOOD UREA NITROGEN 8 mg/dl (7-18); CALCIUM 8.3 mg/dl (8.4-10.2); CHLORIDE 97 mmol/L (98-107); CO2 24 mmol/L (22-28); GLUCOSE,RANDOM 232 mg/dl (74-106); MAGNESIUM 1.8 mg/dL (1.8-2.4); SGOT/AST 32 U/L (10-42); SGPT/ALT 37 U/L (10-40); SODIUM 130 mmol/L (136-145)
[2018-01-09] MEDS ORDERED: SENNOSIDES 8.6MG TABLET (FP) PO PRN (09:20)
[2018-01-09] MEDS: oxyCODONE HCL 5 MG TABLET PO PRN ×2 (09:37→21:40)
[2018-01-09] MEDS: FAMOTIDINE 20 MG TABLET PO SCH (09:38)
[2018-01-09] MEDS: METOPROLOL TARTRATE 25 MG TABLET (FP) PO SCH ×2 (09:38→21:22)
[2018-01-09] MEDS: LISINOPRIL 20 MG TABLET (FP) PO SCH (09:38)
[2018-01-09] MEDS: ACETAMINOPHEN 325 MG TABLET (FP) PO PRN ×2 (09:38→21:40)
[2018-01-09] MEDS: POLYETHYLENE GLYCOL 3350 119 GM BTL PO SCH (09:39)
--- NOTE | 2018-01-09 11:28 | PN ---
Progress Note (short form) - Note Progress Note: Pt lying comf in bed Shoulder pain improvingl Last Vital Signs Temp Pulse Resp BP Pulse Ox 98 F 99 H 18 146/82 98 01/09/18 09:30 01/09/18 09:30 01/09/18 09:30 01/09/18 09:30 01/09/18 09:00 LUE improved induration but small amount still present dressing from aspiration CDI mild tenderness near FROM shoulder NVID Laboratory Results - last 24 hr 01/09/18 01/09/18 01/09/18 06:12 07:00 07:00 WBC 9.2 RBC 4.18 Hgb 11.4 L Hct 33.9 L MCV 81.1 MCH 27.3 MCHC 33.6 RDW 13.0 Plt Count 598 H D MPV 8.0 Absolute Neuts (auto) 6.8 Neutrophils % 73.1 Lymphocytes % 17.1 D Monocytes % 7.9 Eosinophils % 1.6 Basophils % 0.3 Sodium 130 L Potassium 5.0 D Chloride 97 L Carbon Dioxide 24 Anion Gap 9 BUN 8 Creatinine 1.0 Creat Clearance w eGFR > 60 POC Glucometer 229 Random Glucose 232 H Calcium 8.3 L Magnesium 1.8 Total Bilirubin 0.5 AST 32 D ALT 37 D Alkaline Phosphatase 97 H D Total Protein 6.0 L Albumin 2.3 L a/p: L shoulder infection -pt is improved after aspiration but infection still present -f/u sensitivities -cont abx -will observe response over next 1-2 days and again consider I+D if not better
[2018-01-09] MEDS ORDERED: INSULIN (NOVOLOG) ASPART 100 UNITS/ML 10ML VIAL SQ ONE (12:19)
--- NOTE | 2018-01-09 13:24 | PN ---
Progress Note (short form) - Note Progress Note: Feels better apetite good Left shoulder pain less Blood sugar still uncontrolled Vital Signs Period Temp Pulse Resp BP Sys/Green Pulse Ox Last 24 Hr 98 F-98.7 F 70-99 18-20 141-173/59-82 95-100 PE: AOx3 Neck: Supple, No JVD HEENT: EOMI Lungs: CTA CVS: S1S2 Abd: Bening EXt: No edema. +Swelling Left shoulder Neuro: No focal deficit CMP Sodium 130 mmol/L (136-145) L 01/09/18 07:00 Potassium 5.0 mmol/L (3.5-5.1) D 01/09/18 07:00 Chloride 97 mmol/L (98-107) L 01/09/18 07:00 Carbon Dioxide 24 mmol/L (22-28) 01/09/18 07:00 Anion Gap 9 (8-16) 01/09/18 07:00 BUN 8 mg/dl (7-18) 01/09/18 07:00 Creatinine 1.0 mg/dl (0.6-1.3) 01/09/18 07:00 Creat Clearance w eGFR > 60 (>60) 01/09/18 07:00 POC Glucometer 259 UNITS (80-120) 01/09/18 12:07 Random Glucose 232 mg/dl (74-106) H 01/09/18 07:00 Hemoglobin A1c % 13.5 % (4.8-6.0) H 01/03/18 12:45 Lactic Acid 1.5 mmol/L (0.0-2.0) 01/03/18 11:24 Calcium 8.3 mg/dl (8.4-10.2) L 01/09/18 07:00 Phosphorus 3.1 mg/dL (2.5-4.9) 01/07/18 10:17 Magnesium 1.8 mg/dL (1.8-2.4) 01/09/18 07:00 Total Bilirubin 0.5 mg/dl (0.2-1.0) 01/09/18 07:00 AST 32 U/L (10-42) D 01/09/18 07:00 ALT 37 U/L (10-40) D 01/09/18 07:00 Alkaline Phosphatase 97 U/L (32-92) H D 01/09/18 07:00 C-Reactive Protein 12.2 MG/DL (0.00-0.3) H 01/06/18 08:30 Total Protein 6.0 g/dl (6.4-8.3) L 01/09/18 07:00 Albumin 2.3 g/dl (3.5-5.0) L 01/09/18 07:00 TSH 1.36 uIU/ml (0.358-3.74) 01/03/18 12:40 Free T4 0.96 ng/dl (0.76-1.16) 01/03/18 12:40 Free T3 3.0 pg/ml (2.0-4.4) 01/03/18 12:40 Current Medications Generic Name Dose Route Start Last Admin Trade Name Freq PRN Reason Stop Dose Admin Acetaminophen 650 mg 01/03/18 14:09 01/09/18 09:38 Tylenol - PO 650 mg Q4H PRN Administration FEVER Docusate Sodium 100 mg 01/05/18 14:45 01/09/18 06:26 Colace - PO Not Given TID JATINDER Famotidine 20 mg 01/04/18 10:00 01/09/18 09:38 Pepcid - PO 20 mg DAILY JATINDER Administration Heparin Sodium (Porcine) 5,000 unit 01/09/18 07:00 01/09/18 07:24 Heparin - SQ 5,000 unit TID JATINDER Administration Piperacillin Sod/Tazobactam Sod 3.375 gm in 50 mls @ 100 mls/hr 01/07/18 14: 30 01/09/18 06:13 Zosyn 3.375gm Ivpb (Pre-Docked) IVPB 100 mls/hr Q8H [facility] Administration Protocol Vancomycin HCl 1,000 mg in 250 mls @ 166.667 mls/hr 01/07/18 14:30 01/09/18 02:02 Vancomycin (Pre-Docked) IVPB 166.667 mls/hr Q12H [facility] Administration Protocol Insulin Aspart 1 vial 01/05/18 08:11 01/08/18 22:18 Novolog Vial Sliding Scale - SQ 2 units HS JATINDER Administration Protocol Insulin Aspart 1 vial 01/08/18 16:49 01/09/18 12:21 Novolog Vial Sliding Scale - SQ Not Given TIDAC [facility] Protocol Insulin Detemir 16 units 01/08/18 22:00 01/09/18 06:15 Levemir Vial SQ 16 units BID@0700,2200 J[facility]ER Administration Lisinopril 20 mg 01/09/18 06:42 01/09/18 09:38 Prinivil PO 20 mg DAILY JATINDER Administration Magnesium Hydroxide 30 ml 01/06/18 14:09 Milk Of Magnesia - PO PRN PRN CONSTIPATION Metoprolol Tartrate 12.5 mg 01/09/18 10:00 01/09/18 09:38 Lopressor - PO 12.5 mg BID JATINDER Administration Oxycodone HCl 5 mg 01/08/18 22:30 01/09/18 09:37 Roxicodone - PO 5 mg Q6H PRN Administration PAIN LEVEL 6-10 Polyethylene Glycol 17 gm 01/06/18 14:15 01/09/18 09:39 Miralax (For Daily Use) - PO 17 gm DAILY JATINDER Administration Senna 2 tab 01/09/18 09:20 Senna - PO HS PRN CONSTIPATION AP: Left shoulder pain/swelling: ?Septic arthritis T2DM: ?new onset: Uncontrolled S/P needle aspiration of Left shoulder joind Increase Levemir 18 units BID Continue Novolog SS coverage Add Januvia 100mg QD, first dose now Side effects including pancreatitis discussed. Pt has no h/o of pancreatitis. Will continue to adjust Insulin dose as necessary, got less Novolog than prescribed today Pt says he is able to self inject Insulin On Vanco and Zosyn Will f/u
[2018-01-09] MEDS ORDERED: sitaGLIPtin PHOSPHATE 100 MG TABLET (FP) PO ONE (13:27)
[2018-01-10] MEDS: VANCOMYCIN 1 GRAM (PRE-DOCKED) 1,000 MG/250 ML BAG IVPB SCH (02:30)
[2018-01-10] MEDS: sitaGLIPtin PHOSPHATE 100 MG TABLET (FP) PO SCH (06:18)
[2018-01-10] MEDS: HEPARIN NA (PORCINE) 5,000 UNITS/ML 1ML VIAL SQ SCH ×3 (06:18→21:26)
[2018-01-10] MEDS: PIPERACILLIN/TAZOB 3.375 GM 3.375 GM/50 ML BAG IVPB SCH (06:18)
[2018-01-10] MEDS: DOCUSATE SODIUM 100 MG CAPSULE (FP) PO SCH ×3 (06:19→21:26)
[2018-01-10] MEDS: INSULIN (LEVEMIR) 100 UNITS/ML UNITS SQ SCH ×2 (06:33→21:27)
[2018-01-10] MEDS: INSULIN SLIDING SCALE (NOVOLOG) 1 VIAL SQ SCH ×4 (06:34→21:27)
--- NOTE | 2018-01-10 09:35 | PN ---
Progress Note (short form) - Note Progress Note: Pt sitting comfortably in a chair Shoulder pain improving Last Vital Signs Temp Pulse Resp BP Pulse Ox 97.9 F 66 18 143/62 100 01/10/18 06:00 01/10/18 06:00 01/10/18 06:00 01/10/18 06:00 01/10/18 06:00 LUE improved induration with wrinkling of the skin nontender slight warmth near FROM shoulder NVID Laboratory Results - last 24 hr 01/09/18 01/09/18 01/09/18 07:00 07:00 12:07 WBC 9.2 RBC 4.18 Hgb 11.4 L Hct 33.9 L MCV 81.1 MCH 27.3 MCHC 33.6 RDW 13.0 Plt Count 598 H D MPV 8.0 Absolute Neuts (auto) 6.8 Neutrophils % 73.1 Lymphocytes % 17.1 D Monocytes % 7.9 Eosinophils % 1.6 Basophils % 0.3 Sodium 130 L Potassium 5.0 D Chloride 97 L Carbon Dioxide 24 Anion Gap 9 BUN 8 Creatinine 1.0 Creat Clearance w eGFR > 60 POC Glucometer 259 Random Glucose 232 H Calcium 8.3 L Magnesium 1.8 Total Bilirubin 0.5 AST 32 D ALT 37 D Alkaline Phosphatase 97 H D Total Protein 6.0 L Albumin 2.3 L 01/09/18 01/09/18 01/10/18 17:03 21:34 06:22 WBC RBC Hgb Hct MCV MCH MCHC RDW Plt Count MPV Absolute Neuts (auto) Neutrophils % Lymphocytes % Monocytes % Eosinophils % Basophils % Sodium Potassium Chloride Carbon Dioxide Anion Gap BUN Creatinine Creat Clearance w eGFR POC Glucometer 313 199 217 Random Glucose Calcium Magnesium Total Bilirubin AST ALT Alkaline Phosphatase Total Protein Albumin a/p: L shoulder infection -soft tissue component of infection much improved -no need for I+D at this time -ok for discharge on abx per ID -can f/u as outpt in 1-2 weeks
[2018-01-10] MEDS: POLYETHYLENE GLYCOL 3350 119 GM BTL PO SCH (10:37)
[2018-01-10] MEDS: METOPROLOL TARTRATE 25 MG TABLET (FP) PO SCH ×2 (10:39→21:26)
[2018-01-10] MEDS: LISINOPRIL 20 MG TABLET (FP) PO SCH (10:39)
[2018-01-10] MEDS: FAMOTIDINE 20 MG TABLET PO SCH (10:39)
[2018-01-10] MEDS: NAFCILLIN - 2 GM in DEXTROSE 5%-WATER - 100 ML IVPB SCH ×3 (12:03→21:26)
[2018-01-10] MEDS ORDERED: PICC LINE 8 ML FLUSH PROTOCOL IVPUSH PRN (12:24)
--- NOTE | 2018-01-10 12:43 | DS ---
Physical Exam: SUBJECTIVE: Patient seen and examined, reports feeling much improved, denies any tactile fever, patient reports pain to left shoulder has improved OBJECTIVE:patient is a 67-year-old male with a past medical history of diabetes. She reports with ongoing left shoulder pain that worsens upon movement for the past 4 weeks. He reports that he was prescribed metformin for his diabetes "several years ago" and self discontinued the medcation because he diabetes resolved as per patient. He was initially evaluated in the emergency department ([facility]) and diagnosed with possible impingement syndrome of the left shoulder and discharged. He reports following up with the orthopedist Dr. Drummond on 12/31/2017 prescribed Keflex ultrasound was completed as per patient which was negative for septic joint and started on Keflex. patient reports taking Keflex as prescribed however the pain worsened to the left shoulder and redness continued to the extremity. ER course was notable for: (1)chest xray: no acute pathology (2)serum glucose 812, anion gap 17 (3)creatine 1.8 (4) cbc 16.6 Vital Signs Period Temp Pulse Resp BP Sys/Green Pulse Ox Last 24 Hr 97.6 F-99.4 F 66-101 17-20 143-158/56-68 95-100 PHYSICAL EXAM GENERAL: The patient is awake, alert, and fully oriented, in no acute distress. HEAD: Normal with no signs of trauma. EYES: PERRL, extraocular movements intact, sclera anicteric, conjunctiva clear. ENT: Ears normal, nares patent, oropharynx clear without exudates, moist mucous membranes. NECK: Trachea midline, full range of motion, supple. LUNGS: Breath sounds equal, clear to auscultation bilaterally, no wheezes, no crackles, no accessory muscle use. HEART: Regular rate and rhythm, S1, S2 without murmur, rub or gallop. ABDOMEN: Soft, nontender, nondistended, normoactive bowel sounds, no guarding, no rebound, no hepatosplenomegaly, no masses. EXTREMITIES: puncture wound noted to left anterior shoulder, no erythema no induration noted, minimal tenderness noted to the left upper extremity upon movement, 2+ pulses, warm, well-perfused, no edema. NEUROLOGICAL: Cranial nerves II through XII grossly intact. Normal speech, gait not observed. PSYCH: Normal mood, normal affect. SKIN: Warm, dry, normal turgor, no rashes or lesions noted. LABS Laboratory Results - last 24 hr 01/09/18 01/09/18 01/10/18 17:03 21:34 06:22 POC Glucometer 313 199 217 C-Reactive Protein 01/10/18 01/10/18 09:30 11:51 POC Glucometer 240 C-Reactive Protein 7.6 H Microbiology 01/07/18 12:44 Shoulder - Left AFB Smear Concentration - Preliminary 01/07/18 12:44 Shoulder - Left Mycobacterial Culture - Preliminary 01/07/18 12:44 Body Fluid - Other Gram Stain - Final 01/07/18 12:44 Body Fluid - Other Body Fluid Culture - Preliminary Staphylococcus Aureus 01/07/18 12:44 Body Fluid - Other Anaerobic Culture - Preliminary No growth. 01/07/18 12:44 Shoulder - Left RANDAL Preparation - Preliminary 01/07/18 12:44 Shoulder - Left Fungal Culture - Preliminary 01/03/18 11:35 Blood - Peripheral Venous Blood Culture - Final NO GROWTH AFTER 5 DAYS INCUBATION 01/03/18 11:24 Blood - Peripheral Venous Blood Culture - Final NO GROWTH AFTER 5 DAYS INCUBATION 01/03/18 15:59 Urine - Urine Clean Catch Urine Culture - Final NO GROWTH OBTAINED IMAGING MRI of the upper left extremity: Marked heterogeneous soft tissue edema along the superior aspect of the entire acromiom, acromioclavicular joint and distal clavicle especially anteriorly with focal fluid collections in the anterior deltoid muscle with surrounding soft tissue edema and soft tissue edema into the trapezius muscle which is most likely infectious with multiple abscesses. 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 dietary consulted and followed 2) Left shoulder cellulitis-septic arthritis of left shoulder, - s/p needle aspiration and biopsy by IR-01/07, staph aureus noted. Patient was treated with vancomycin and Zosyn throughout admission. patient remained afebrile no leukocytosis noted. Dr Tavera (ortho) consulted and followed. 3) KATARZYNA, resolved, secondary to hypovolemia. 4) cardiology, hypertension, Hypertension- BP improved after Lisinopril and Lopressor was initiated. PLAN - discharge home with PICC line - continue all medications as prescirbed - strict follow up with Dr Melchor, ID within 1 week Date of Admission:01/03/18 Date of Discharge: 01/10/18 Minutes to complete discharge: 45 Discharge Summary Reason For Visit: LEFT SHOULDER REDNESS Current Active Problems KATARZYNA (acute kidney injury) (Acute) Cellulitis of shoulder (Acute) Diabetes mellitus with hyperglycemia (Acute) New onset type 2 diabetes mellitus (Acute) Condition: Guarded - Instructions - Home Medications Comprehensive Discharge Medication List: Ambulatory Orders Cephalexin [Keflex] 500 mg PO BID 01/03/18 Problem List - Problems (1) Diabetes mellitus with hyperglycemia Code(s): E11.65 - TYPE 2 DIABETES MELLITUS WITH HYPERGLYCEMIA - Discharge Referral Referred to [facility] Med P.C.: No
--- NOTE | 2018-01-10 13:43 | PN ---
Progress Note (short form) - Note Progress Note: Feels better apetite good Going for PICC Blood sugar still uncontrolled Vital Signs Period Temp Pulse Resp BP Sys/Green Pulse Ox Last 24 Hr 97.6 F-99.4 F 66-101 17-20 143-158/56-68 95-100 PE: AOx3 Neck: Supple, No JVD HEENT: EOMI Lungs: CTA CVS: S1S2 Abd: Bening EXt: No edema. +Swelling Left shoulder Neuro: No focal deficit CMP Sodium 130 mmol/L (136-145) L 01/09/18 07:00 Potassium 5.0 mmol/L (3.5-5.1) D 01/09/18 07:00 Chloride 97 mmol/L (98-107) L 01/09/18 07:00 Carbon Dioxide 24 mmol/L (22-28) 01/09/18 07:00 Anion Gap 9 (8-16) 01/09/18 07:00 BUN 8 mg/dl (7-18) 01/09/18 07:00 Creatinine 1.0 mg/dl (0.6-1.3) 01/09/18 07:00 Creat Clearance w eGFR > 60 (>60) 01/09/18 07:00 POC Glucometer 240 UNITS (80-120) 01/10/18 11:51 Random Glucose 232 mg/dl (74-106) H 01/09/18 07:00 Hemoglobin A1c % 13.5 % (4.8-6.0) H 01/03/18 12:45 Lactic Acid 1.5 mmol/L (0.0-2.0) 01/03/18 11:24 Calcium 8.3 mg/dl (8.4-10.2) L 01/09/18 07:00 Phosphorus 3.1 mg/dL (2.5-4.9) 01/07/18 10:17 Magnesium 1.8 mg/dL (1.8-2.4) 01/09/18 07:00 Total Bilirubin 0.5 mg/dl (0.2-1.0) 01/09/18 07:00 AST 32 U/L (10-42) D 01/09/18 07:00 ALT 37 U/L (10-40) D 01/09/18 07:00 Alkaline Phosphatase 97 U/L (32-92) H D 01/09/18 07:00 C-Reactive Protein 7.6 MG/DL (0.00-0.3) H 01/10/18 09:30 Total Protein 6.0 g/dl (6.4-8.3) L 01/09/18 07:00 Albumin 2.3 g/dl (3.5-5.0) L 01/09/18 07:00 TSH 1.36 uIU/ml (0.358-3.74) 01/03/18 12:40 Free T4 0.96 ng/dl (0.76-1.16) 01/03/18 12:40 Free T3 3.0 pg/ml (2.0-4.4) 01/03/18 12:40 Current Medications Generic Name Dose Route Start Last Admin Trade Name Freq PRN Reason Stop Dose Admin Acetaminophen 650 mg 01/03/18 14:09 01/09/18 21:40 Tylenol - PO 650 mg Q4H PRN Administration FEVER Docusate Sodium 100 mg 01/05/18 14:45 01/10/18 06:19 Colace - PO 100 mg TID JATINDER Administration Famotidine 20 mg 01/04/18 10:00 01/10/18 10:39 Pepcid - PO 20 mg DAILY JATINDER Administration Heparin Sodium (Porcine) 5,000 unit 01/09/18 07:00 01/10/18 06:18 Heparin - SQ 5,000 unit TID JATINDER Administration IV Flush 8 ml 01/10/18 12:24 Picc Line Flush IVPUSH PRN PRN Protocol Nafcillin Sodium 2 gm/ 100 mls @ 100 mls/hr 01/10/18 11:00 01/10/18 12:03 Dextrose IVPB 100 mls/hr Q6H-IV JATINDER Administration Protocol Insulin Aspart 1 vial 01/05/18 08:11 01/09/18 21:40 Novolog Vial Sliding Scale - SQ Not Given HS JATINDER Protocol Insulin Aspart 1 vial 01/08/18 16:49 01/10/18 12:08 Novolog Vial Sliding Scale - SQ 14 units TIDAC JATINDER Administration Protocol Insulin Detemir 18 units 01/09/18 22:00 01/10/18 06:33 Levemir Vial SQ 18 units BID@0700,2200 JATINDER Administration Lisinopril 20 mg 01/09/18 06:42 01/10/18 10:39 Prinivil PO 20 mg DAILY JATINDER Administration Magnesium Hydroxide 30 ml 01/06/18 14:09 Milk Of Magnesia - PO PRN PRN CONSTIPATION Metoprolol Tartrate 12.5 mg 01/09/18 10:00 01/10/18 10:39 Lopressor - PO 12.5 mg BID JATINDER Administration Oxycodone HCl 5 mg 01/08/18 22:30 01/09/18 21:40 Roxicodone - PO 5 mg Q6H PRN Administration PAIN LEVEL 6-10 Polyethylene Glycol 17 gm 01/06/18 14:15 01/10/18 10:37 Miralax (For Daily Use) - PO Not Given DAILY JATINDER Senna 2 tab 01/09/18 09:20 Senna - PO HS PRN CONSTIPATION Sitagliptin Phosphate 100 mg 01/10/18 07:00 01/10/18 06:18 Januvia - PO 100 mg DAILY@0700 JATINDER Administration AP: Left shoulder pain/swelling: ?Septic arthritis S/P needle aspiration of Left shoulder joint T2DM: ?new onset: Uncontrolled Awaiting PICC line Increase Levemir 20 units BID Continue Novolog SS coverage Januvia 100mg QD, first dose now Will continue to adjust Insulin dose as necessary, got less Novolog than prescribed today Pt says he is able to self inject Insulin On Vanco and Zosyn F/U in office in a week on discharge Will f/u
[2018-01-10] MEDS ORDERED: PT OWN MED DRAWER 7, Y5N ONE ×2 (16:25→21:06)
[2018-01-10] MEDS: ACETAMINOPHEN 325 MG TABLET (FP) PO PRN (21:27)
[2018-01-11] MEDS ORDERED: PT OWN MED DRAWER 7, Y5N ONE ×2 (03:13→15:32)
[2018-01-11] MEDS: NAFCILLIN - 2 GM in DEXTROSE 5%-WATER - 100 ML IVPB SCH ×3 (03:21→15:34)
[2018-01-11] MEDS: DOCUSATE SODIUM 100 MG CAPSULE (FP) PO SCH ×2 (06:11→15:35)
[2018-01-11] MEDS: sitaGLIPtin PHOSPHATE 100 MG TABLET (FP) PO SCH (06:11)
[2018-01-11] MEDS: INSULIN SLIDING SCALE (NOVOLOG) 1 VIAL SQ SCH ×2 (06:12→12:23)
[2018-01-11] MEDS: HEPARIN NA (PORCINE) 5,000 UNITS/ML 1ML VIAL SQ SCH ×2 (06:12→15:34)
[2018-01-11] MEDS: INSULIN (LEVEMIR) 100 UNITS/ML UNITS SQ SCH (06:12)
[2018-01-11] MEDS ORDERED: sitaGLIPtin PHOSPHATE 50 MG TABLET PO SCH (09:12)
[2018-01-11] MEDS: FAMOTIDINE 20 MG TABLET PO SCH (11:20)
[2018-01-11] MEDS: POLYETHYLENE GLYCOL 3350 119 GM BTL PO SCH (11:20)
[2018-01-11] MEDS: LISINOPRIL 20 MG TABLET (FP) PO SCH (11:20)
[2018-01-11] MEDS: METOPROLOL TARTRATE 25 MG TABLET (FP) PO SCH (11:20)
[2018-01-11] MEDS ORDERED: INSULIN (NOVOLOG) ASPART 100 UNITS/ML 10ML VIAL ONE (12:20)
[2018-01-11 14:24] VITALS: BP 189/82; PULSE 74; TEMP 98.8
== END 2018-01-11 18:00 | disposition home or self-care (01) | DRG 383 ==
LOC: FER 10:54 → FM/S 12:22 → JSAMEDAYSX 01-07 09:11 → FM/S 01-07 13:43
PROVIDERS: ADMIT Internal Medicine; ATTEND Nurse Practitioner Family
PROC: 0X9 Anatomical Regions, Upper Extremities, Drainage (ICD-10-PCS; 2018-01-07)
PROC: 02HV33Z Insertion of Infusion Device into Superior Vena Cava, Percutaneous Approach (ICD-10-PCS; principal; 2018-01-11)
DX: L03.114 Cellulitis of left upper limb (principal); E11.65 Type 2 diabetes mellitus with hyperglycemia; N17.9 Acute kidney failure, unspecified; I10 Essential (primary) hypertension; K59.00 Constipation, unspecified; L02.414 Cutaneous abscess of left upper limb; M86.8X1 Other osteomyelitis, shoulder; E86.0 Dehydration
CPT/HCPCS: 10022; 36415; 36569; 71045-TC-FY; 73200-TC-RT; 73221-TC-LT; 80053; 81003; 81015; 82009; 82803; 82947; 82962; 83036; 83605; 83735; 84100; 84439; 84443; 84481; 85025; 85610; 85651; 86140; 87040; 87070; 87075; 87086; 87102; 87116; 87186; 87205; 87206; 87210; 87899; 93005; 99283-25; C1751; G0480; J0131; J1644; J3480; J7030